=== PATIENT | male | born 1960 | race Caucasian/White ===

== ENCOUNTER 2019-11-20 08:36 | Outpatient (CLI) | payer OTHER, SELFPAY ==
[2019-11-20 08:54] LABS: Basophils Percent Auto 0.6 % (0.2-1.2); Eosinophils Absolute Auto 0.4 K/mm3 (0-0.3); Eosinophils Percent Auto 6.3 % (0-4.4); Hemoglobin 16.5 g/dL (14.0-18.0); Immature Granulocyte Absolute 0.02 K/mm3 (0.00-0.031); Immature Granulocyte Percent A 0.3 % (0-0.5); Lymphocytes Absolute Auto 2.49 K/mm3 (0.9-3.2); Lymphocytes Percent Auto 35.4 % (18.3-44.2); Mean Corpuscular HGB Conc 34.4 g/dl (32-36); Mean Corpuscular Hemoglobin 31.5 pg (26-34); Mean Corpuscular Volume 91.6 fl (80-100); Mean Platelet Volume 9.5 fl (7.4-10.4); Monocytes Absolute Auto 0.7 K/mm3 (0.1-0.6); Monocytes Percent Auto 9.8 % (2.6-8.5); Neutrophils Absolute Auto 3.4 K/mm3 (1.3-6.7); Neutrophils Percent Auto 47.6 % (45.5-73.1); Platelet Count Result 297 k/mm3 (150-375); Red Blood Count 5.24 M/mm3 (4.6-6.20); Red Cell Distribution Width 12.2 % (11.5-14.5)
[2019-11-20 10:00] LABS: Iron 141 ug/dL (49-181)
[2019-11-20 10:06] LABS: Alanine Aminotransferase 20 U/L (4-50); Albumin Level 4.5 g/dL (3.5-5.1); Alkaline Phosphatase 57 U/L (38-126); Anion Gap 13.5 mmol/L (7-16); Aspartate Amino Transferase 21 U/L (17-59); Bilirubin,Total 0.5 mg/dL (0.2-1.3); Blood Urea Nitrogen 23 mg/dL (9-20); Calcium 9.6 mg/dL (8.4-10.2); Carbon Dioxide 25 mmol/L (22-30); Chloride 102 mmol/L (98-107); Estimated Glomerular Filt Rate > 60; Glucose 109 mg/dL (75-110); Potassium 4.5 mmol/L (3.4-5.0); Sodium 136 mmol/L (137-145)
[2019-11-20 10:09] LABS: Percent Iron Saturation 40 % (20-50)
== END 2019-11-20 08:37 | disposition home or self-care (01) ==
LOC: ANHLAB 08:40
PROVIDERS: PCP Internal Medicine; Visit Provider Internal Medicine Hematology & Oncology
DX: E83.119 Hemochromatosis, unspecified (principal)
CPT/HCPCS: 36415; 80053; 82728; 83540; 83550; 85025

== ENCOUNTER 2020-01-19 09:57 | Emergency (ER) | payer OTHER, SELFPAY ==
--- NOTE | ~2020-01-19 | XR_ITS ---
EXAMINATION: XR abdomen/kub 1V DATE: 01/19/2020 11:29 INDICATION: Left kidney stone. Left flank pain. TECHNIQUE: A supine view of the abdomen was obtained. COMPARISON: CT abdomen and pelvis 01/19/2020 FINDINGS: There are no dilated loops of bowel. There is a phlebolith in left pelvis. There is a 3 mm stone in distal left ureter. IMPRESSION: 1. 3 mm stone in distal left ureter. Reviewed, dictated and finalized at location A.
--- NOTE | ~2020-01-19 | CT_ITS ---
EXAMINATION: CT abdomen pelvis wo con DATE: 01/19/2020 10:58 INDICATION: Left flank pain. Hematuria. TECHNIQUE: Computed tomography (CT) of the abdomen and pelvis was performed without intravenous contr ast. Automated exposure control and iterative reconstruction technique were employed. The dose-length product was 235.77 mGy-cm. COMPARISON: None. FINDINGS: The visualized portions of the lung bases are clear without pneumonia or pleural effusion. The heart size is normal. No pericardial effusion. The liver, gallbladder, spleen, pancreas, adrenal glands, and right kidney are normal. There is mild left hydronephrosis and hydroureter. There is a 3 mm stone in distal left ureter. The prostate is mildly enlarged. There are bilateral inguinal hernias containing fat. There are no dilated loops of bowel. The appendix is normal. There are no pathologic ally enlarged lymph nodes. There is no free intraperitoneal fluid. There is severe lumbar spondylosis . IMPRESSION: 1. 3 mm stone in distal left ureter with mild left hydronephrosis and hydroureter. Reviewed, dictated and finalized at location A. IMPRESSION: 1. 3 mm stone in distal left ureter with mild left hydronephrosis and hydrouret er.
--- NOTE | 2020-01-19 10:03 | ED.GENADULT ---
HPI - General Adult General Chief complaint: Urogenital-Male Stated complaint: hematuria Time Seen by Provider: 01/19/20 10:00 Source: RN notes reviewed History of Present Illness HPI narrative: Patient presents emergency department from home for hematuria. Patient states that last night when he went to the restroom he was peeing red blood in his urine. He states that this morning it was darker more tea colored in nature. He denies any associated symptoms denies any fevers or chills abdominal pain nausea vomiting dysuria or any other symptoms. Patient states he does take a daily aspirin Related Data Home Medications Medication Instructions Recorded Confirmed aspirin [Aspirin Low Dose] 81 mg PO DAILY 01/19/20 simvastatin 20 mg PO DAILY 01/19/20 varenicline [Chantix Continuing mg 01/19/20 Month Box] Allergies Allergy/AdvReac Type Severity Reaction Status Date / Time dextromethorphan Allergy Unknown Verified 09/10/17 14:30 doxylamine Allergy Unknown Verified 09/10/17 14:30 pseudoephedrine Allergy Unknown Verified 09/10/17 14:30 Review of Systems Review of Systems: Narrative: Gen.: Denies fevers or chills ENT: Denies congestion Respiratory: Denies shortness of breath or cough CV: Denies chest pain or palpitations GI: Denies abdominal pain nausea, emesis or diarrhea see HPI Musculoskeletal: Denies back pain or muscle pain Neuro: Denies numbness, tingling, weakness or focal weakness Skin: Denies rash Except as documented, all other systems reviewed and negative PMFSH Past Medical History Medical History (Updated 01/19/20 @ 11:54 by Gautam Kuo DO) Atrial fibrillation Exam Narrative: Exam Narrative: APPEARANCE: No acute distress, nontoxic, resting in bed EYES: EOMI HEENT: Normocephalic, atraumatic, OMM RESPIRATORY: No respiratory distress Clear to auscultation bilaterally with no rhonchi wheezing or rales. CARDIOVASCULAR: Regular rate and rhythm without murmurs rubs or gallops. ABDOMINAL: Soft, nontender, nondistended, no rebound or guarding MUSCULOSKELETAl: Moves all extremities. No clubbing, cyanosis or edema. NEURO: Awake and alert. Following commands, speech normal, no focal deficits SKIN:: Warm, dry. No rashes lesions or abrasions PSYCHIATRIC: Normal affect/mood, Course Course Emergency Course: Patient has developed some mild left flank pain Discussed with patient results of workup and diagnosis. Discussed need for follow-up with primary care, proper use of medication, and reasons to return to the emergency department. Patient understands and agrees to current treatment plan Vital Signs Vital signs: Vital Signs Temperature 97.6 F 01/19/20 10:17 Pulse Rate 53 L 01/19/20 10:17 Respiratory Rate 14 01/19/20 10:17 Blood Pressure 146/87 H 01/19/20 10:17 Pulse Oximetry 99 01/19/20 10:17 Temperature 97.6 F 01/19/20 10:17 Pulse Rate 53 L 01/19/20 10:17 Respiratory Rate 14 01/19/20 10:17 Blood Pressure 146/87 H 01/19/20 10:17 Pulse Oximetry 99 01/19/20 10:17 Medical Decision Making Vital Signs Vital Signs: Vital Signs Temperature 97.6 F 01/19/20 10:17 Pulse Rate 53 L 01/19/20 10:17 Respiratory Rate 14 01/19/20 10:17 Blood Pressure 146/87 H 01/19/20 10:17 Pulse Oximetry 99 01/19/20 10:17 Temperature 97.6 F 01/19/20 10:17 Pulse Rate 53 L 01/19/20 10:17 Respiratory Rate 14 01/19/20 10:17 Blood Pressure 146/87 H 01/19/20 10:17 Pulse Oximetry 99 01/19/20 10:17 Lab Data Result diagrams: 01/19/20 10:11 01/19/20 10:11 Labs: Lab Results 01/19/20 01/19/20 01/19/20 Range/Units 10:11 10:11 10:11 WBC 8.4 (4.5-10.0) K/mm3 RBC 5.35 (4.6-6.20) M/mm3 Hgb 17.3 (14.0-18.0) g/dL Hct 49.7 (42.0-52.0) % MCV 92.9 (80-100) fl MCH 32.3 (26-34) pg MCHC 34.8 (32-36) g/dl RDW 12.3 (11.5-14.5) % Plt Count 303 (150-375) k/mm3 MPV 9.4 (7.4-10.4) fl Imm
[2020-01-19 10:17] VITALS: BP 146/87; PULSE 53; RESP 14; TEMP 36.4; O2SAT 99
[2020-01-19] MEDS: SODIUM CHLORIDE 0.9% IV 1,000 ML 999 ML IV CONT (10:17)
[2020-01-19 10:19] LABS: Basophils Percent Auto 0.5 % (0.2-1.2); Eosinophils Absolute Auto 0.3 K/mm3 (0-0.3); Eosinophils Percent Auto 3.9 % (0-4.4); Hematocrit 49.7 % (42.0-52.0); Hemoglobin 17.3 g/dL (14.0-18.0); Immature Granulocyte Absolute 0.01 K/mm3 (0.00-0.031); Immature Granulocyte Percent A 0.1 % (0-0.5); Lymphocytes Absolute Auto 2.95 K/mm3 (0.9-3.2); Mean Corpuscular HGB Conc 34.8 g/dl (32-36); Mean Corpuscular Hemoglobin 32.3 pg (26-34); Mean Corpuscular Volume 92.9 fl (80-100); Mean Platelet Volume 9.4 fl (7.4-10.4); Monocytes Absolute Auto 0.7 K/mm3 (0.1-0.6); Monocytes Percent Auto 8.4 % (2.6-8.5); Neutrophils Absolute Auto 4.4 K/mm3 (1.3-6.7); Neutrophils Percent Auto 52.1 % (45.5-73.1); Platelet Count Result 303 k/mm3 (150-375); Red Blood Count 5.35 M/mm3 (4.6-6.20); Red Cell Distribution Width 12.3 % (11.5-14.5); White Blood Count 8.4 K/mm3 (4.5-10.0)
[2020-01-19 10:28] LABS: Prothrombin Time 12.8 Seconds (11.1-14.7)
[2020-01-19 10:29] LABS: Partial Thromboplastin Time 30.6 SECONDS (22.3-36.8)
[2020-01-19 10:33] LABS: Alanine Aminotransferase 23 U/L (4-50); Albumin Level 4.8 g/dL (3.5-5.1); Alkaline Phosphatase 57 U/L (38-126); Anion Gap 10 mmol/L (8-16); Aspartate Amino Transferase 30 U/L (17-59); Bilirubin,Total 0.4 mg/dL (0.2-1.3); Blood Urea Nitrogen 17 mg/dL (9-20); Calcium 9.8 mg/dL (8.4-10.2); Carbon Dioxide 30 mmol/L (22-30); Chloride 102 mmol/L (98-107); Estimated CRCL calculation 65 ml/min; Estimated Glomerular Filt Rate > 60; Glucose 114 mg/dL (75-110); Potassium 4.1 mmol/L (3.4-5.0); Sodium 142 mmol/L (137-145)
[2020-01-19 11:07] LABS: Add Urine Microscopic? YES; Appearance Urine Cloudy (Clear); Bilirubin Urine Negative (Negative); Blood Urine 3+ (Negative); Color Urine Red (Yellow); Glucose Urine UA Negative (Negative); Ketones Urine Negative (Negative); Leukocyte Esterase Ur Negative LEU/UL (Negative); Nitrate Urine Negative (Negative); Protein Urine 2+ mg/dL (Negative); RBC Urine >75 /hpf (0-2); Urobilinogen Urine Negative mg/dL (<2.0)
[2020-01-19] MEDS: KETOROLAC 30 MG/ML VIAL (*BKC) IV PUSH (11:19)
[2020-01-19] MEDS: TAMSULOSIN HCL 0.4 MG CAPSULE PO (11:20)
[2020-01-19 12:10] VITALS: BP 157/91; PULSE 54; RESP 12; O2SAT 99
== END 2020-01-19 12:10 | disposition home or self-care (01) ==
PROVIDERS: Emergency Provider Emergency Medicine; PCP Internal Medicine
DX: N13.2 Hydronephrosis with renal and ureteral calculous obstruction (principal); I48.91 Unspecified atrial fibrillation; Z79.82 Long term (current) use of aspirin
CPT/HCPCS: 36415; 74018; 74176; 80053; 81001; 85025; 85610; 85730; 87086; 96361; 96374; 99284; A9270; J1885; J7030

== ENCOUNTER 2020-02-23 10:33 | Outpatient (CLI) | payer OTHER, SELFPAY ==
--- NOTE | ~2020-02-23 | XR_ITS ---
EXAMINATION: XR abdomen/kub 1V INDICATION: History of nephrolithiasis TECHNIQUE: Supine views of the abdomen were obtained on 2 radiographs. COMPARISON: 01/19/2020 FINDINGS: A 3 mm calcification in the left pelvis could reflect a stone at the left ureterovesicular junction. A moderate volume of colonic stool is present. The bowel gas pattern is normal. There are n o dilated loops of bowel. Mild osteoarthritis is noted in the hips. IMPRESSION: 1. Possible stone at the left ureterovesicular junction. Reviewed, dictated and finalized at location A. RETE PUDDLER
--- NOTE | ~2020-02-23 | XR_ITS ---
EXAMINATION: XR shoulder LT min 2V INDICATION: Left shoulder pain TECHNIQUE: Four views of the left shoulder are submitted. COMPARISON: None FINDINGS: Normal alignment. No fracture. There is mild glenohumeral and acromioclavicular joint osteo arthritis. Soft tissues are unremarkable. IMPRESSION: 1. No acute osseous abnormality. Reviewed, dictated and finalized at location A. NING TEAM LEADER
--- NOTE | ~2020-02-23 | XR_ITS ---
EXAMINATION: XR chest 2V DATE: 02/23/2020 10:56 INDICATION: Tobacco use TECHNIQUE: PA and lateral views of the chest are obtained. COMPARISON: 06/28/2018 FINDINGS: The lungs are free of acute opacities. There is no pleural effusion or pneumothorax. The ca rdiomediastinal silhouette is normal. There is moderate thoracic spondylosis. IMPRESSION: 1. No acute cardiopulmonary abnormality. Reviewed, dictated and finalized at location A. CTOR OF BLOOD
== END 2020-02-23 10:34 | disposition home or self-care (01) ==
PROVIDERS: PCP Emergency Medicine; Visit Provider Emergency Medicine
DX: M25.512 Pain in left shoulder (principal); Z87.442 Personal history of urinary calculi
CPT/HCPCS: 71046; 73030; 74018

== ENCOUNTER 2020-03-01 09:21 | Outpatient (CLI) | payer OTHER, SELFPAY ==
--- NOTE | ~2020-03-01 | CT_ITS ---
EXAMINATION: CT lung screening DATE: 03/01/2020 10:02 INDICATION: TOBACCO DEPENDENCE TECHNIQUE: Computed tomography (CT) of the chest was performed without intravenous contrast. Addition al 3D reconstructions utilizing coronal maximum intensity projection (MIP) were performed. Automated exposure control and iterative reconstruction technique were employed. The dose-length product was 14 1.27 mGy-cm. COMPARISON: None FINDINGS: There are few scattered tiny nodules in the bilateral lungs, the largest measuring 4 mm in the anteri or right upper lobe and 3 mm at the apical left upper lobe. No pulmonary edema, pleural effusion or p neumothorax. Heart size is normal. No pericardial effusion. Thoracic aorta is normal in caliber. No p athologically enlarged thoracic lymphadenopathy. Visualized upper abdomen is unremarkable. Mild upper thoracic dextrocurvature with mild to moderate spondylosis. Chronic appearing mild anterior wedging of a couple mid thoracic vertebral bodies. IMPRESSION: 1. . Lung-RADS category 2: Benign appearance or behavior. Continue annual screening with noncontrast low-dose chest CT in 12 months. Reviewed, dictated and finalized at location H. INSULATION BOARD SAW OPERATOR IMPRESSION: 1. . Lung-RADS category 2: Benign appearance or behavior. Continue annual scree celina with noncontrast low-dose chest CT in 12 months.
== END 2020-03-01 09:22 | disposition home or self-care (01) ==
LOC: ANHIMG 09:22
PROVIDERS: PCP Emergency Medicine; Visit Provider Emergency Medicine
DX: Z12.2 Encounter for screening for malignant neoplasm of respiratory organs (principal); Z87.891 Personal history of nicotine dependence
CPT/HCPCS: G0297

== ENCOUNTER 2020-03-20 15:14 | Emergency (ER) | payer OTHER, SELFPAY ==
--- NOTE | ~2020-03-20 | XR_ITS ---
EXAMINATION: XR abdomen/kub 1V DATE: 03/20/2020 17:34 INDICATION: Kidney stone TECHNIQUE: A supine view of the abdomen on 2 radiographs was obtained. COMPARISON: CT dated 03/20/2020 FINDINGS: The 4 mm left ureterovesicular junction stone is clearly visualized on the plain radiographs. No othe r evident nephrolithiasis. Moderate amount of gas and stool scattered throughout the colon. No dilate d loops of gas-filled bowel to suggest obstruction. Lung bases are clear. Heart size is normal. Mild lumbar levocurvature with moderate to severe lower lumbar spondylosis. IMPRESSION: 1. 4 mm stone at the left ureterovesicular junction. Reviewed, dictated and finalized at location A. ESTATE LISTING CONSULTANT
--- NOTE | ~2020-03-20 | CT_ITS ---
EXAMINATION: CT abdomen pelvis wo con DATE: 03/20/2020 16:49 INDICATION: Left lower quadrant abdominal pain. TECHNIQUE: Computed tomography (CT) of the abdomen and pelvis was performed without intravenous contr ast. Automated exposure control and iterative reconstruction technique were employed. The dose-length product was 568.73 mGy-cm. COMPARISON: CT abdomen and pelvis 01/19/2020 FINDINGS: The visualized portions of the lung bases demonstrate minimal atelectasis. No pleural effus ion. The heart size is normal. No pericardial effusion. The liver, spleen, gallbladder, pancreas, adr enal glands, and left kidney are normal. There is a 12 mm cyst in right kidney. There is a 4 mm stone at left ureterovesicular junction with mild left hydroureter. There are bilateral inguinal hernias c ontaining fat. The prostate mildly enlarged. There are no dilated loops of bowel. The appendix is nor mal. There are no pathologically enlarged lymph nodes. There is no free intraperitoneal fluid. There is severe lumbar spondylosis. IMPRESSION: 1. 4 mm stone at left ureterovesicular junction with mild left hydroureter. Reviewed, dictated and finalized at location A. WARE TRAINER
[2020-03-20 15:20] VITALS: BP 147/100; PULSE 60; RESP 20; TEMP 36.8; O2SAT 96
[2020-03-20 15:45] LABS: Basophils Absolute Auto 0.1 K/mm3 (0.0-0.1); Basophils Percent Auto 0.5 % (0.2-1.2); Eosinophils Absolute Auto 0.5 K/mm3 (0-0.3); Eosinophils Percent Auto 5.2 % (0-4.4); Hematocrit 44.7 % (42.0-52.0); Hemoglobin 15.9 g/dL (14.0-18.0); Immature Granulocyte Absolute 0.02 K/mm3 (0.00-0.031); Immature Granulocyte Percent A 0.2 % (0-0.5); Lymphocytes Absolute Auto 3.42 K/mm3 (0.9-3.2); Lymphocytes Percent Auto 36.9 % (18.3-44.2); Mean Corpuscular HGB Conc 35.6 g/dl (32-36); Mean Corpuscular Hemoglobin 32.6 pg (26-34); Mean Corpuscular Volume 91.8 fl (80-100); Mean Platelet Volume 9.1 fl (7.4-10.4); Monocytes Absolute Auto 0.8 K/mm3 (0.1-0.6); Monocytes Percent Auto 8.3 % (2.6-8.5); Neutrophils Absolute Auto 4.5 K/mm3 (1.3-6.7); Neutrophils Percent Auto 48.9 % (45.5-73.1); Platelet Count Result 276 k/mm3 (150-375); Red Blood Count 4.87 M/mm3 (4.6-6.20); Red Cell Distribution Width 12.6 % (11.5-14.5); White Blood Count 9.3 K/mm3 (4.5-10.0)
[2020-03-20 15:57] LABS: Alanine Aminotransferase 28 U/L (4-50); Albumin Level 4.5 g/dL (3.5-5.1); Alkaline Phosphatase 50 U/L (38-126); Anion Gap 7 mmol/L (8-16); Aspartate Amino Transferase 30 U/L (17-59); Bilirubin,Total 0.4 mg/dL (0.2-1.3); Blood Urea Nitrogen 19 mg/dL (9-20); Calcium 9.3 mg/dL (8.4-10.2); Carbon Dioxide 27 mmol/L (22-30); Chloride 104 mmol/L (98-107); Estimated CRCL calculation 80 ml/min; Estimated Glomerular Filt Rate > 60; Glucose 96 mg/dL (75-110); Potassium 4.3 mmol/L (3.4-5.0); Sodium 138 mmol/L (137-145)
[2020-03-20 16:13] LABS: Add Urine Microscopic? YES; Appearance Urine Clear (Clear); Bilirubin Urine Negative (Negative); Blood Urine 1+ (Negative); Color Urine Yellow (Yellow); Glucose Urine UA Negative (Negative); Ketones Urine Negative (Negative); Leukocyte Esterase Ur Negative LEU/UL (Negative); Mucus Urine Rare /lpf; Nitrate Urine Negative (Negative); Protein Urine 1+ mg/dL (Negative); Specific Grav Ur 1.026 (1.001-1.035); Squamous Epithelial Cell Urine Rare /hpf (Few)
--- NOTE | 2020-03-20 17:34 | ED.GENADULT ---
HPI - General Adult General Chief complaint: Urogenital-Male Stated complaint: Difficulty Urinating Time Seen by Provider: 03/20/20 15:20 Source: RN notes reviewed History of Present Illness HPI narrative: Patient presents emergency department from home for urinary frequency. Patient states he has been having feeling of frequent urination over the past several days as well as pain in his left lower abdomen that does not radiate. States that symptoms are similar to previous kidney stones and states he was here the beginning of January for a kidney stone at that time. Patient states has been having intermittent symptoms over the past several months of pain on the left side he denies any fevers or chills nausea vomiting or any other symptoms states he is not followed with urology Related Data Home Medications Medication Instructions Recorded Confirmed aspirin [Aspirin Low Dose] 81 mg PO DAILY 01/19/20 simvastatin 20 mg PO DAILY 01/19/20 varenicline [Chantix Continuing mg 01/19/20 Month Box] Allergies Allergy/AdvReac Type Severity Reaction Status Date / Time dextromethorphan Allergy Unknown Verified 09/10/17 14:30 doxylamine Allergy Unknown Verified 09/10/17 14:30 pseudoephedrine Allergy Unknown Verified 09/10/17 14:30 Review of Systems Review of Systems: Narrative: Gen.: Denies fevers or chills Eyes: Denies eye pain or visual change ENT: Denies congestion Respiratory: Denies shortness of breath or cough CV: Denies chest pain or palpitations GI: Reports left lower abdominal pain denies nausea vomiting or diarrhea see HPI Musculoskeletal: Denies back pain or muscle pain Neuro: Denies numbness, tingling, weakness or focal weakness Skin: Denies rash Except as documented, all other systems reviewed and negative [facility] [place] Past Medical History Medical History Atrial fibrillation Social History Social History (Updated 03/20/20 @ 17:35 by Gautam Kuo DO) Smoking status: Never smoker Exam Narrative: Exam Narrative: APPEARANCE: No acute distress, nontoxic, resting in bed EYES: EOMI HEENT: Normocephalic, atraumatic, OMM RESPIRATORY: No respiratory distress Clear to auscultation bilaterally with no rhonchi wheezing or rales. CARDIOVASCULAR: Regular rate and rhythm without murmurs rubs or gallops. ABDOMINAL: Soft, nondistended, tender palpation left lower quadrant no tenderness left lower quadrant right upper quadrant right lower quadrant no rebound or guarding MUSCULOSKELETAl: Moves all extremities. No clubbing, cyanosis or edema. NEURO: Awake and alert. Following commands, speech normal, no focal deficits SKIN:: Warm, dry. No rashes lesions or abrasions PSYCHIATRIC: Normal affect/mood, Course Course Emergency Course: Reviewed old records. Patient with a CT scan on 01/19/2020 showing a left distal UVJ stone approximately 3 to 4 mm and a KUB again at the beginning of them are showing the same stone Called discussed with Dr. Bhardwaj presentation work-up. At this time likely 4 mm distal left ureteral stone is not passing will follow-up as an outpatient agrees with pain control and Flomax at this time Discussed with patient results of workup and diagnosis. Discussed need for follow-up with primary care, proper use of medication, and reasons to return to the emergency department. Patient understands and agrees to current treatment plan Vital Signs Vital signs: Vital Signs Temperature 98.3 F 03/20/20 15:20 Pulse Rate 60 03/20/20 15:20 Respiratory Rate 20 03/20/20 15:20 Blood Pressure 147/100 H 03/20/20 15:20 Pulse Oximetry 96 03/20/20 15:20 Temperature 98.3 F 03/20/20 15:20 Pulse Rate 60 03/20/20 15:20 Respiratory Rate 20 03/20/20 15:20 Blood Pressure 147/100 H 03/20/20 15:20 Pulse Oximetry 96 03/20/20 15:20 Medical Decision Making Vital Signs Vital Signs: Vital Signs Temperature 98.3 F 03/20/20 15:20 Pulse R
[2020-03-20 18:05] VITALS: BP 143/84; PULSE 65; RESP 16; O2SAT 96
[2020-03-20] MEDS: TAMSULOSIN HCL 0.4 MG CAPSULE PO (18:06)
== END 2020-03-20 18:05 | disposition home or self-care (01) ==
PROVIDERS: Emergency Provider Emergency Medicine; PCP Emergency Medicine
DX: N20.0 Calculus of kidney (principal); I48.91 Unspecified atrial fibrillation
CPT/HCPCS: 36415; 74018; 74176; 80053; 81001; 85025; 99284; A9270

== ENCOUNTER 2020-07-05 07:40 | Outpatient (CLI) | payer OTHER, SELFPAY ==
--- NOTE | ~2020-07-05 | DEXA_ITS ---
Bone Density Report Name: Jayson Zamudio Age: 59 Sex: Male Ethnicity: White Date of : 1960 Indication: osteoporosis; asthma or emphysema; rheumatoid arthritis; Referring Provider: Silverio Hdez Study: Bone densitometry was performed. Exam Date: July 05, 2020 Accession number: [id number] Bone Density: Region BMD T-score Z-score Classification AP Spine (L2, L3, L4) 0.858 -2.3 -1.8 Osteopenia Femoral Neck (Left) 0.704 -1.7 -0.8 Osteopenia Total Hip (Left) 0.893 -0.9 -0.5 Normal Total Hip Bilateral Avg 0.891 -0.9 -0.6 Normal Femoral Neck (Right) 0.715 -1.6 -0.7 Osteopenia Total Hip (Right) 0.887 -1.0 -0.6 Normal World Health Organization criteria for BMD impression classify patients as: Normal (T-score at or above -1.0), Osteopenia (T-score between -1.0 and -2.5), or Osteoporosis (T-score at or below -2.5). 10-year Fracture Risk(1): Major Osteoporotic Fracture 7.8% Hip Fracture 1.6% Reported Risk Factors: [place] (), Neck BMD=0.704, BMI=27.4, smoking, rheumatoid arthritis (1) FRAX(R) Version 3.08. Fracture probability calculated for an untreated patient. Fracture probability may be lower if the patient has received treatment. Previous Exams: Region Exam Age BMD T-score BMD Change BMD Change Date g/cm2 vs Baseline vs Previous AP Spine(L2, L3, L4) 07/05/2020 59 0.858 -2.3 0.044(5.4%)# 0.044(5.4%)# 07/27/2005 44 0.814 -2.7 Total Hip(Right) 07/05/2020 59 0.887 -1.0 0.061(7.3%)# 0.061(7.3%)# 07/27/2005 44 0.827 -1.4 *Denotes significance at 95% confidence level, LSC for AP Spine = 0.022 g/cm2, LSC for Total Hip = 0.027 g/cm2 Clinical Information Provided by Patient: Smokes Has rheumatoid arthritis Has used the following medications: Vitamin D, Calcium Has the following medical conditions: Asthma or Emphysema Patient maximum height was 67 Does not regularly consume dairy products Impression: The patient has low bone mass, based on the Total Spine T-score. The patient has an estimated ten-year risk of hip fracture of 1.6% and an estimated ten-year risk of major fracture of 7.8%, based on the WHO FRAX algorithm. The patient has risk factors, including: smoking. No significant bone loss was observed. Discussion: BONE DENSITY IS LOW AT ONE OR MORE SKELETAL SITES. This patient's lowest T-score is low at one or more skeletal sites. It meets the World Health Organization's (WHO) criteria for ?low bone mass? (T-score between -1.0 and -2.5). The tasha
== END 2020-07-05 07:41 | disposition home or self-care (01) ==
LOC: ANHIMG 07:42
PROVIDERS: PCP Emergency Medicine; Visit Provider Emergency Medicine
DX: M81.0 Age-related osteoporosis without current pathological fracture (principal); M85.88 Other specified disorders of bone density and structure, other site; M85.852 Other specified disorders of bone density and structure, left thigh; M85.851 Other specified disorders of bone density and structure, right thigh
CPT/HCPCS: 77080

== ENCOUNTER 2020-09-11 07:42 | Outpatient (CLI) | payer OTHER, SELFPAY ==
--- NOTE | ~2020-09-11 | MR_ITS ---
EXAMINATION: MR shoulder LT wo con DATE: 09/11/2020 09:18 INDICATION: Left shoulder pain and weakness TECHNIQUE: Magnetic resonance imaging (MRI) of the left shoulder was performed without intravenous co ntrast. Sequences included axial PD-weighted FS FSE, coronal oblique PD-weighted FS FSE, coronal obli que T2-weighted FS FSE, sagittal PD-weighted FS FSE, and sagittal T1-weighted SE. COMPARISON: Left shoulder radiographs dated 02/23/2020 FINDINGS: Coracoacromial arch: The acromion undersurface is curved in morphology (type II). The coracoacromial ligament is normal. M ild acromioclavicular osteoarthritis. Rotator cuff: Mild to moderate supraspinatus and infraspinatus tendinopathy greatest at the conjoined portion of th e tendons where there is attenuation of the distal 1.5 cm of the tendon resulting from an intrasubsta nce tear along the junction of the superior and middle facet footplates which appears to involve appr oximately one third of the tendon thickness and extends approximately 12 mm AP. Subscapularis tendino nayeli without discrete tear. The teres minor tendon is normal. Normal rotator cuff muscle bulk and si gnal. Biceps tendon, glenoid labrum and glenohumeral cartilage: Long head of the biceps tendon is normal. Mild glenohumeral osteoarthritis with mild partial thicknes s cartilage loss with smooth chondral surface along the inferior aspect of the glenoid and inferomedi al humeral head. The anteroinferior to inferior glenoid labrum appears diminutive and cyst with likel y chronic degeneration with tiny marginal osteophytes along the underlying rim of the glenoid. Small linear tear near the chondral labral junction at the base of the 12:00 position of the superior labru m. Fluid: Physiologic amount of fluid in the glenohumeral joint and biceps tendon sheath. No loose osteochondra l bodies. Small amount of fluid in the subacromial/subdeltoid bursa consistent with mild bursitis. Bones: Normal marrow signal with no edema, fracture or abnormal marrow replacing process. Mild cystic change along the superior and middle facets of the greater tuberosity likely related to chronic rotator cuf f disease. IMPRESSION: 1. Mild to moderate supraspinatus and infraspinatus tendinopathy with small mild intrasubstance tear at the footplate of the conjoined portion of the tendons. 2. Mild subscapularis tendinopathy without discrete tear. 3. Mild glenohumeral osteoarthritis with small tear at the superior glenoid labrum and likely chronic degeneration along the anteroinferior to inferior labrum. 4. Mild acromioclavicular osteoarthritis. 5. Mild underlying subacromial/subdeltoid bursitis. Reviewed, dictated and finalized at location A. IMPRESSION: 1. Mild to moderate supraspinatus and infraspinatus tendinopathy with small mil d intrasubstance tear at the footplate of the conjoined portion of the tendons. 2. Mild subscapularis tendinopathy without discrete tear. 3. Mild glenohumeral osteoarthritis with small tear at the superior glenoid lab rum and likely chronic degeneration along the anteroinferior to inferior labrum . 4. Mild acromioclavicular osteoarthritis. 5. Mild underlying subacromial/subdeltoid bursitis.
== END 2020-09-11 07:43 | disposition home or self-care (01) ==
PROVIDERS: PCP Emergency Medicine; Visit Provider Orthopaedic Surgery
DX: M19.012 Primary osteoarthritis, left shoulder (principal); M75.102 Unspecified rotator cuff tear or rupture of left shoulder, not specified as traumatic; M75.52 Bursitis of left shoulder; S43.432A Superior glenoid labrum lesion of left shoulder, initial encounter
CPT/HCPCS: 73221

== ENCOUNTER → 2021-05-15 10:15 | Outpatient (CLI) | payer OTHER, SELFPAY ==
--- NOTE | ~2021-05-15 | XR_ITS ---
XR cervical spine 4-5V 05/15/2021 10:33 Indication: Crackling sound in the back of the neck Procedure: 4 views of the cervical spine Comparison: No prior studies for comparison. Findings: There is mild levocurvature. There is mild multilevel uncinate and facet hypertrophy, left greater than right.. There is mild disc narrowing at C5-6. Lung apices are unremarkable. No acute fra cture or traumatic malalignment. Impression: 1: Mild-moderate cervical spondylosis. Reviewed, dictated and finalized at location B. ENT MANUFACTURER Impression: 1: Mild-moderate cervical spondylosis.
== END ==
PROVIDERS: PCP Emergency Medicine; Visit Provider Emergency Medicine
DX: M47.812 Spondylosis without myelopathy or radiculopathy, cervical region (principal)
CPT/HCPCS: 72050

== ENCOUNTER 2021-05-17 09:07 | Outpatient (CLI) | payer OTHER, SELFPAY ==
--- NOTE | ~2021-05-17 | CT_ITS ---
CT lung screening DATE: 05/17/2021 09:33 INDICATION: Tobacco dependence TECHNIQUE: Computed tomography of the chest was performed without IV contrast material. Automated exp osure control and iterative reconstruction technique were employed. Exam dose: 134.44 mGy-cm total exam DLP. COMPARISON: 03/01/2020 CT lung screening FINDINGS: No pulmonary infiltrate or consolidation or pulmonary mass lesion. There is a small calcified pulmonary granuloma in the right upper lobe. No hilar or mediastinal mass lesion or lymphadenopathy. No thoracic aortic aneurysm. Normal heart size. Diffuse idiopathic skeletal hyperostosis of the thoracic spine. IMPRESSION: LUNG RADS Category 1 Recommendation: Continued annual CT lung screening Reviewed, dictated and finalized at Location A. Reviewed, dictated and finalized at location A. ESSIONAL NURSING TUTOR
== END 2021-05-17 09:08 | disposition home or self-care (01) ==
LOC: ANHIMG 09:12
PROVIDERS: PCP Emergency Medicine; Visit Provider Emergency Medicine
DX: Z12.2 Encounter for screening for malignant neoplasm of respiratory organs (principal); Z87.891 Personal history of nicotine dependence
CPT/HCPCS: 71271

== ENCOUNTER 2021-08-04 10:13 | Outpatient (CLI) | payer OTHER, SELFPAY ==
[2021-08-04 10:31] LABS: Basophils Percent Auto 0.5 % (0.2-1.2); Eosinophils Absolute Auto 0.2 K/mm3 (0-0.3); Eosinophils Percent Auto 3.9 % (0-4.4); Hematocrit 43.7 % (42.0-52.0); Hemoglobin 14.4 g/dL (14.0-18.0); Immature Granulocyte Absolute 0.01 K/mm3 (0.00-0.031); Immature Granulocyte Percent A 0.2 % (0-0.5); Lymphocytes Absolute Auto 2.49 K/mm3 (0.9-3.2); Lymphocytes Percent Auto 40.6 % (18.3-44.2); Mean Corpuscular Hemoglobin 31.9 pg (26-34); Mean Corpuscular Volume 96.9 fl (80-100); Mean Platelet Volume 9.1 fl (7.4-10.4); Monocytes Absolute Auto 0.5 K/mm3 (0.1-0.6); Monocytes Percent Auto 7.3 % (2.6-8.5); Neutrophils Absolute Auto 2.9 K/mm3 (1.3-6.7); Neutrophils Percent Auto 47.5 % (45.5-73.1); Platelet Count Result 296 k/mm3 (150-375); Red Blood Count 4.51 M/mm3 (4.6-6.20); Red Cell Distribution Width 12.8 % (11.5-14.5); White Blood Count 6.1 K/mm3 (4.5-10.0)
[2021-08-04 17:46] LABS: Iron 133 ug/dL (49-181)
[2021-08-04 17:55] LABS: Alanine Aminotransferase 37 U/L (4-50); Albumin Level 4.5 g/dL (3.5-5.1); Alkaline Phosphatase 49 U/L (38-126); Anion Gap 7 mmol/L (8-16); Aspartate Amino Transferase 38 U/L (17-59); Bilirubin,Total 0.5 mg/dL (0.2-1.3); Blood Urea Nitrogen 17 mg/dL (9-20); Calcium 8.8 mg/dL (8.4-10.2); Carbon Dioxide 23 mmol/L (22-30); Chloride 105 mmol/L (98-107); Estimated Glomerular Filt Rate > 60; Glucose 143 mg/dL (65-110); Potassium 4.1 mmol/L (3.4-5.0); Sodium 135 mmol/L (137-145)
[2021-08-04 17:56] LABS: Percent Iron Saturation 37 % (20-50)
== END 2021-08-04 10:14 | disposition home or self-care (01) ==
LOC: ANHLAB 10:17
PROVIDERS: PCP Emergency Medicine; Visit Provider Internal Medicine Hematology & Oncology
DX: E83.119 Hemochromatosis, unspecified (principal)
CPT/HCPCS: 36415; 80053; 82728; 83540; 83550; 85025

== ENCOUNTER 2021-08-11 07:49 | Outpatient (CLI) | payer OTHER, SELFPAY ==
--- NOTE | 2021-08-11 09:10 | ECHO_ITS ---
Patient Info Name: Jayson Zamudio Age: 60 years : 1960 Gender: Male Ht: 66 in Wt: 175 lbs BSA: 1.94 m2 HR: 57 bpm BP: 163 / 92 mmHg Technical Quality: Good Exam Date: 08/11/2021 9:38 AM Exam Location: [facility] Pulmonary Patient Status: Outpatient Admit Date: 08/11/2021 Staff Ordering Physician: Miah Angel MD Vp Product: Khoa Umanzor, LISA, RT Attending Provider: Miah Angel MD Referring Physician: Jeanne HOLM; Exam Type: CA echo doppler color flow Study Info Indications R06.00 - Dyspnea, unspecified Complete two-dimensional, color flow and Doppler transthoracic echocardiogram is performed. Strain analysis performed. Summary 1. Complete two-dimensional, color flow and Doppler transthoracic echocardiogram is performed. 2. Left ventricular chamber dimension is normal. 3. Left ventricular systolic function is normal, estimated at 60-65%. 4. There is mildly increased left ventricular wall thickness. 5. The left ventricular diastolic function is normal. 6. E/e' 7 is not elevated. 7. Global longitudinal strain is normal at -17.4%. 8. There is trace tricuspid valve regurgitation. Left Ventricle E/e' 7 is not elevated. Global longitudinal strain is normal at -17.4%. Left ventricular chamber dimension is normal. Left ventricular systolic function is normal, estimated at 60-65%. There is mildly increased left ventricular wall thickness. The left ventricular diastolic function is normal. Right Ventricle Right ventricular systolic function is normal and with normal TAPSE 2.1 cm. Right ventricular chamber dimension is normal. Left Atria Left atrial chamber dimension is normal. Right Atria Right atrial chamber dimension is normal. Aortic Valve The aortic valve is trileaflet. There is no aortic valve stenosis. There is no aortic valve regurgitation. Pulmonic Valve There is no pulmonic regurgitation. Mitral Valve There is no mitral valve stenosis. There is no mitral valve regurgitation. Tricuspid Valve There is trace tricuspid valve regurgitation. RVSP is not calculated due to an inadequate TR jet. Pericardium/Pleural There is no pericardial effusion. Inferior Vena Cava Normal inferior vena cava with >50% collapse upon inspiration consistent with normal right atrial pressure, 5 mmHg. Aorta The aortic root size at the sinus of Valsalva is normal. Left Ventricular Outflow Tract Name Value Normal LVOT 2D LVOT Diameter 2.0 cm LVOT Doppler LVOT Peak Gradient 5 mmHg LVOT Mean Gradient 2 mmHg LVOT VTI 23 cm LVOT VTI/AV VTI Ratio 0.7 LVOT Stroke Volume 74 ml LVOT CO 4.0 l/min LVOT CI 2.1 l/min/m2 Mitral Valve Name Value Normal MV Doppler
--- NOTE | 2021-08-12 22:11 | WPDPFTINT ---
PFT Procedure Performed PFT Procedure Performed Spirometry with Pre/Post Bronchodilator Plethysmography (Lung Vol) Diffusing Cap (DLCO) Flow Vol Loop PFT Interpretation DOS: 08/11/2021 REQUESTING: Dr. Miah Angel REASON FOR TESTING: Shortness of breath PULMONARY FUNCTION TESTS Results are reliable and reproducible Spirometry: Pre-bronchodilator FEV1 is 50% predicted, 1.62 L, moderately reduced. FVC is 68% predicted, 2.79 L, mildly reduced. FEV1/FVC ratio is reduced 58% consistent with airflow obstruction. After bronchodilator administration there was an 18% increase in FEV1 which is greater than 200 mils and this is statistically significant. FVC increases by 16%. Lung volumes: Total lung capacity is 99%, 6.15 L, normal. FRC is 121% predicted, 3.83 L normal. ERV is 41%, decreased, 0.56 L. Residual volume is 162%, 3.22 L consistent with air trapping. Airway resistance is increased. Diffusion: DLCO is 68%, mildly decreased. DLCO/VA is 87%, normal. Flow volume loop: Scooping of the expiratory limb. IMPRESSION: This pulmonary function study shows a moderate obstructive ventilatory impairment with good response to bronchodilator, air trapping, increased airway resistance and a mild diffusion impairment. This pattern may reflect an overlap of COPD and asthma. Clinical correlation is recommended. Suyapa Rivas MD
--- NOTE | 2021-08-12 22:18 | WPDSIXMINUTE ---
Six Minute Walk Procedure Procedure Performed Pulmonary Stress Test (6 min walk) Six Minute Walk Six Minute Walk: DOS: 08/11/2021 REQUESTING: Dr. Miah Angel REASON FOR TESTING: Shortness of breath SIX MINUTE WALK This study was performed per ATS guidelines. The test was conducted with the patient breathing room air, initial saturation 95% and pulse 55. There is no significant drop in the saturation. Pulse increased to 93. The patient walked a total of 1000 ft/ 304.8 m. During recovery saturation was 95% and the pulse was 59. IMPRESSION: This study shows no requirement for oxygen with exertion. Distance walked is adequate for age.
== END 2021-08-11 07:50 | disposition home or self-care (01) ==
LOC: ANHPFT 07:53
PROVIDERS: PCP Emergency Medicine; Visit Provider Internal Medicine Pulmonary Disease
DX: I48.0 Paroxysmal atrial fibrillation (principal); R06.00 Dyspnea, unspecified; R94.2 Abnormal results of pulmonary function studies
CPT/HCPCS: 93306; 94060; 94618; 94726; 94729

== ENCOUNTER → 2021-09-01 09:59 | Outpatient (CLI) | payer OTHER, SELFPAY | PROVIDERS: PCP Emergency Medicine; Visit Provider Emergency Medicine | DX: R07.81 Pleurodynia (principal) | CPT/HCPCS: 71046 ==

== ENCOUNTER → 2021-09-02 08:05 | Outpatient (CLI) | payer OTHER, SELFPAY ==
--- NOTE | ~2021-09-02 | XR_ITS ---
EXAMINATION: XR abdomen/kub 1V DATE: 09/02/2021 08:35 INDICATION: Abdominal pain. Left lateral rib pain. TECHNIQUE: A supine view of the abdomen was obtained. COMPARISON: Abdomen radiographs 03/20/2020, CT abdomen and pelvis 03/20/2020 FINDINGS: There are no dilated loops of bowel. There is a moderate volume of stool in the colon. IMPRESSION: 1. Normal bowel gas pattern. Reviewed, dictated and finalized at location B.
--- NOTE | ~2021-09-02 | XR_ITS ---
[XR chest 2V, XR ribs LT 2V ] INDICATION: Smoker. Left-sided rib pain. TECHNIQUE: Frontal projection of the upper ribs, frontal projection of the lower ribs, oblique projec tion of all the ribs, frontal inspiratory and lateral chest x-ray for interpretation. FINDINGS: There are no displaced rib fractures identified. There are no soft tissue abnormality see n. The lungs are clear. Heart size is normal. No focal pneumonia, edema, effusion or pneumothorax. IMPRESSION: 1:No acute cardiopulmonary disease. No acute rib fracture. Reviewed, dictated and finalized at location A.
== END ==
PROVIDERS: PCP Emergency Medicine; Visit Provider Emergency Medicine
DX: R07.81 Pleurodynia (principal); R10.9 Unspecified abdominal pain
CPT/HCPCS: 71100; 74018

== ENCOUNTER → 2021-10-01 10:35 | Outpatient (CLI) | payer OTHER, SELFPAY ==
--- NOTE | ~2021-10-01 | XR_ITS ---
XR humerus RT DATE: 10/01/2021 11:00 INDICATION: Left upper arm pain for 2 months. No injury. TECHNIQUE: AP and lateral views COMPARISON: None FINDINGS: No fracture or dislocation, periosteal reaction or bone destruction of the humerus. Normal alignment at the acromioclavicular, glenohumeral and elbow joints. Dorsal olecranon process spur, present on 09/17/2015 right elbow radiographs. There is a fixation device at the proximal radius. IMPRESSION: No significant abnormality of the right humerus Postoperative change of the proximal radius Dorsal olecranon process spur Reviewed, dictated and finalized at location A.
== END ==
PROVIDERS: PCP Emergency Medicine; Visit Provider Emergency Medicine
DX: M89.8X2 Other specified disorders of bone, upper arm (principal)
CPT/HCPCS: 73060

== ENCOUNTER 2021-10-20 21:22 | Observation (INO) | payer OTHER, SELFPAY ==
[2021-10-20] VITALS (8 sets, daily range): BP systolic 103–156; BP diastolic 73–92; PULSE 112–161; RESP 17–22; TEMP 36.8; O2SAT 97–99
--- NOTE | ~2021-10-20 | XR_ITS ---
EXAMINATION: XR chest 1V portable DATE: 10/20/2021 21:58 INDICATION: Shortness of breath. Feels fluttering chest. TECHNIQUE: frontal view of the chest was obtained. COMPARISON: Chest radiograph dated 09/02/2021 FINDINGS: Pulmonary vascular congestion without katelin pulmonary edema. No pleural effusion or pneumothorax. The cardiomediastinal silhouette is normal. Visualized bones and soft tissues are unremarkable. IMPRESSION: 1. Pulmonary vascular congestion without katelin pulmonary edema. Reviewed, dictated and finalized at location A.
--- NOTE | 2021-10-20 21:30 | ED.ARRPALP ---
HPI - Arrhythmia/Palpitations General Chief Complaint: Arrhythmia/Palpitations Stated Complaint: AFIB WITH RVR Time Seen by Provider: 10/20/21 21:27 History of Present Illness HPI narrative: 60-year-old male with history of atrial fibrillation presented to the emergency department for evaluation of cute onset of rapid heart rate with heart palpitations. Patient states that approximately 9 PM he was lying down when he felt onset of a rapid heart rate. Patient called EMS for evaluation. Patient states he has had 2 episodes of atrial fibrillation. Last one was about a year ago and states it resolved spontaneously. Patient states he had an episode in 2018 that did require hospital admission. Patient denies any prior cardioversion. Related Data Home Medications Medication Instructions Recorded Confirmed aspirin 81 mg tablet,delayed 81 mg PO DAILY 01/19/20 08/22/21 release (Roxanne Low Dose Aspirin) calcium carbonate 600 mg calcium 600 mg PO DAILY 05/17/20 08/22/21 (1,500 mg) tablet (Calcium) garlic 1,000 mg capsule 1,000 mg PO DAILY 05/17/20 08/22/21 melatonin 3 mg capsule mg PO 05/17/20 08/22/21 cholecalciferol (vitamin D3) 25 5,000 unit PO DAILY 01/03/21 08/22/21 mcg (1,000 unit) capsule magnesium 250 mg tablet 250 mg PO DAILY 07/03/21 08/22/21 cyanocobalamin (vitamin B-12) 500 1,000 mcg PO DAILY 08/22/21 08/22/21 mcg tablet (Vitamin B-12) Allergies Allergy/AdvReac Type Severity Reaction Status Date / Time dextromethorphan Allergy Unknown unknown Verified 10/20/21 21:50 doxylamine Allergy Unknown unknown Verified 10/20/21 21:50 pseudoephedrine Allergy Unknown Unknown Verified 10/20/21 21:50 Review of Systems Review of Systems: CONSTITUTIONAL: Denies fever, chills, or sweats. EYES: Denies visual changes, redness, or discharge. ENT: Denies rhinorrhea, congestion, sore throat, or otalgia. CARDIOVASCULAR: Heart palpitations, denies any chest pain. See HPI RESPIRATORY: Denies cough or dyspnea. GASTROINTESTINAL: Denies abdominal pain, nausea, vomiting, or diarrhea. GENITOURINARY: Denies dysuria or hematuria. SKIN: Denies rash or itching. MUSCULOSKELETAL: Denies back pain, joint pain, or myalgia. NEUROLOGIC: Denies headache, numbness, or weakness. PSYCHIATRIC: Denies anxiety or depression. [facility] Past Medical History Medical History Atrial fibrillation Hemochromatosis Hyperlipidemia Prediabetes Right arm pain Surgical History Surgical History History of colonoscopy History of shoulder surgery Family History Family History Father Acute alcohol abuse Mother Cancer Hypertension Heart and renal disease, hypertensive Social History Social History (Updated 08/22/21 @ 09:45 by Lavonne Egan MA) Social History: Patient stated he is only smoking 2 cigarettes per day, 08/13/2021 Smoking packs per day: 1 Smoking cigarettes per day: 20.0 Years smoked: 41 Smoking pack-years: 41.00 Smoking status: Current every day smoker Second hand tobacco smoke exposure: Yes Alcohol intake: former Exam Narrative: APPEARANCE: Well appearing, no pain, no distress, well-nourished. HEAD: normocephalic, atraumatic. EYES: PERRLA/EOMI, conjunctivae clear. NOSE: Normal no drainage EARS:TMS clear with good light reflex. THROAT: Pharynx clear, no exudate. NECK: Supple. No adenopathy, no masses. RESPIRATORY: Airway patent, respirations nonlabored. Clear to auscultation bilaterally, no rales, rhonchi, wheezing. CARDIOVASCULAR: Tachycardia with a rate into the 180s ABDOMINAL: Soft, nontender, nondistended, normal bowel sounds MUSCULOSKELETAL: Moves all extremities. Strength/ROM intact, No edema, No calf tenderness. NEURO: Alert. Cranial nerves II through XII intact. Grossly intact SKIN: Warm, dry. Normal Color Course Course Emergency Course:
--- NOTE | 2021-10-20 21:34 | ECG_ITS ---
Rate 150 IL 0 QRSd 96 QT 283 QTc 448 --[place]-- P QRS 16 T 51 ATRIAL FIBRILLATION WITH RAPID VENTRICULAR RESPONSE ST-T WAVE ABNORMALITY IN ANTEROLAT/HIGH LAT LEADS- CONSIDER ISCHEMIA ABNORMAL ECG Electronically Signed On 10-21-2021 8:00:45 CDT by Jarod BRAVO
[2021-10-20] MEDS: SODIUM CHLORIDE 0.9% IV 1,000 ML 999 ML IV CONT (21:35)
[2021-10-20] MEDS: dilTIAZem HCl INJ 25 MG/5 ML VIAL 10 MG IV PUSH (21:36)
[2021-10-20] MEDS: dilTIAZem 100 MG/100 ML 100 MG/100 ML BAG IV CONT (21:37)
[2021-10-20 22:06] LABS: Appearance Urine Clear (Clear); Basophils Percent Auto 0.5 % (0.2-1.2); Bilirubin Urine Negative (Negative); Blood Urine Trace-lysed (Negative); Color Urine Yellow (Yellow); Eosinophils Absolute Auto 0.3 K/mm3 (0-0.3); Eosinophils Percent Auto 4.3 % (0-4.4); Glucose Urine UA Negative (Negative); Hematocrit 43.9 % (42.0-52.0); Hemoglobin 14.8 g/dL (14.0-18.0); Immature Granulocyte Absolute 0.02 K/mm3 (0.00-0.031); Immature Granulocyte Percent A 0.3 % (0-0.5); Ketones Urine Negative (Negative); Leukocyte Esterase Ur Negative LEU/UL (Negative); Lymphocytes Absolute Auto 3.04 K/mm3 (0.9-3.2); Lymphocytes Percent Auto 40.5 % (18.3-44.2); Mean Corpuscular HGB Conc 33.7 g/dl (32-36); Mean Corpuscular Hemoglobin 31.7 pg (26-34); Mean Platelet Volume 9.6 fl (7.4-10.4); Monocytes Absolute Auto 0.8 K/mm3 (0.1-0.6); Monocytes Percent Auto 11.1 % (2.6-8.5); Neutrophils Absolute Auto 3.3 K/mm3 (1.3-6.7); Neutrophils Percent Auto 43.3 % (45.5-73.1); Nitrate Urine Negative (Negative); Platelet Count Result 277 k/mm3 (150-375); Protein Urine Negative (Negative); Red Blood Count 4.67 M/mm3 (4.6-6.20); Red Cell Distribution Width 12.6 % (11.5-14.5); Urobilinogen Urine 0.2 mg/dL (<2.0); White Blood Count 7.5 K/mm3 (4.5-10.0)
[2021-10-20 22:12] LABS: RBC Urine 0-2 /hpf (0-2); WBC Urine 0-3 /hpf
[2021-10-20 22:17] LABS: Partial Thromboplastin Time 28.6 SECONDS (22.3-36.8)
[2021-10-20 22:22] LABS: Add Urine Microscopic? YES; Amphetamine Screen Urine Negative (Negative); Barbiturate Screen Urine Negative (Negative); Benzodiazepines Screen Urine Negative (Negative); Cannabinoid Screen Urine Negative (Negative); Cocaine Screen Urine Negative (Negative); Methadone Screen Urine Negative (Negative); Opiate Screen Urine Negative (Negative); Phencyclidine Screen Urine Negative (Negative)
[2021-10-20 22:34] LABS: Alanine Aminotransferase 35 U/L (6-50); Albumin Level 4.4 g/dL (3.5-5.1); Alkaline Phosphatase 50 U/L (38-126); Anion Gap 8 mmol/L (8-16); Aspartate Amino Transferase 31 U/L (17-59); Bilirubin,Total 0.3 mg/dL (0.2-1.3); Blood Urea Nitrogen 22 mg/dL (9-20); Carbon Dioxide 21 mmol/L (22-30); Chloride 111 mmol/L (98-107); Estimated CRCL calculation 73 ml/min; Estimated Glomerular Filt Rate > 60; Glucose 116 mg/dL (65-110); NT Pro B Type Natriuretic Pept 32 pg/mL (5-100); Potassium 3.6 mmol/L (3.4-5.0); Sodium 140 mmol/L (137-145)
[2021-10-20 22:36] LABS: Troponin I < 0.012 ng/mL (0.000-0.034)
[2021-10-20 22:39] LABS: SARS-CoV-2 RNA PCR Negative
--- NOTE | 2021-10-20 23:05 | PC.NURSE ---
Assumed care of pt at this time. Pt alert and upright on stretcher, updated on POC.
--- NOTE | 2021-10-20 23:56 | PM.IMHP ---
H&P: HPI History of Present Illness Date/Time: 10/20/21 23:56 Chief Complaint: palpitations Narrative: this is a 60-year-old male with past medical history significant for COPD / emphysema, former smoker 40 pack year smoking history dyslipidemia. Patient presents to the emergency room due to palpitations fluttery feeling in his chest pounding of the chest, denies any nausea, vomiting, dizziness, lightheadedness, near-syncope, syncope, no cough, no sputum production, no leg swelling, no pedal swelling, no ankle swelling, no calves pain, no fevers, no rigors, no chills, no chest pain. upon arrival to emergency room patient was found to have atrial fibrillation with rapid ventricular response and placed on Cardizem drip. Preliminary workup was significant for elevated troponin. patient has been in his usual state of health up until this moment. Decision has been made to admit patient for further evaluation management and treatment. Review of Systems Review of Systems: palpitations Constitutional: Constitutional: Denies chills, Denies excessive sweating, Denies fatigue, Denies fever(s), Denies malaise, Denies night sweats, Denies poor appetite and Denies weakness Eyes: Eyes: Denies change in vision ENT: Denies dysphagia, Denies vertigo, Denies dizziness and Denies odynophagia Cardiovascular: Cardiovascular: Denies chest pain, Denies diaphoresis, Denies syncope, Denies pedal edema, Reports irregular heart rhythm, Denies claudication, Denies lightheadedness, Denies radiating jaw, neck or arm pain, Reports palpitations, Denies dyspnea, Denies dyspnea on exertion, Denies orthopnea and Denies paroxysmal nocturnal dyspnea Respiratory: Respiratory: Denies chest congestion, Denies cough, Denies excessive phlegm production, Denies dyspnea and Denies wheezing Gastrointestinal: Gastrointestinal: Denies abdominal pain, Denies dyspepsia, Denies heartburn, Denies diarrhea, Denies nausea and Denies vomiting Genitourinary: Genitourinary: Denies dysuria Musculoskeletal: Musculoskeletal: Denies back pain, Denies myalgias and Denies joint swelling Integumentary/Breasts: Skin/Breast: Denies rash Neurologic: Denies focal weakness and Denies Sensory deficit (Neuro) Psychiatric: Psychiatric: Reports no additional psychiatric complaints and Reports as per HPI Endocrine: Endocrine: Denies cold intolerance, Denies flushing, Denies heat intolerance, Denies polyphagia, Denies polydipsia and Denies palpitations Hematologic/Lymphatic: Hematologic/Lymphatic: Reports no additional hematologic/lymphatic complaints and Reports as per HPI Allergic/Immunologic: Allergic/Immunologic: Reports no additional allergic/immunologic complaints and Reports as per HPI PMFSH Past Medical History Medical History Atrial fibrillation Hemochromatosis Hyperlipidemia Prediabetes Right arm pain Surgical History Surgical History History of colonoscopy History of shoulder surgery Family History Family History Father Acute alcohol abuse Mother Cancer Hypertension Heart and renal disease, hypertensive Social History Social History (Updated 08/22/21 @ 09:45 by Lavonne Egan MA) Social History: Patient stated he is only smoking 2 cigarettes per day, 08/13/2021 Smoking packs per day: 1 Smoking cigarettes per day: 20.0 Years smoked: 41 Smoking pack-years: 41.00 Smoking status: Current every day smoker Second hand tobacco smoke exposure: Yes Alcohol intake: former Meds Home Medications and Allergies Home Medications Medication Instructions Recorded Confirmed Type aspirin 81 mg tablet,delayed 81 mg PO DAILY 01/19/20 08/22/21 History release (Roxanne Low Dose Aspirin) calcium carbonate 600 mg calcium 600 mg PO DAILY 05/17/20 08/22/21 History (1,500 mg) tablet (Calcium)
[2021-10-21] VITALS (19 sets, daily range): BP systolic 104–154; BP diastolic 67–86; PULSE 44–134; RESP 14–24; TEMP 36.4–36.7; O2SAT 97–100; BMI 30.4
--- NOTE | 2021-10-21 | ECHO_ITS ---
Patient Info Name: Jayson Zamudio Age: 60 years : 1960 Gender: Male Ht: 66 in Wt: 187 lbs BSA: 2.01 m2 HR: 43 bpm BP: 110 / 60 mmHg Technical Quality: Good Exam Date: 10/21/2021 8:42 AM Exam Location: [facility] Patient Status: Outpatient Admit Date: 10/21/2021 Staff Ordering Physician: Stephanie Garcia MD Manager Eligibility: Khoa Umanzor, LISA, RT Attending Provider: Stephanie Garcia MD Referring Physician: Radha DALTON; Exam Type: CA echo doppler color flow Study Info Indications I42.2 - Other hypertrophic cardiomyopathy Complete two-dimensional, color flow and Doppler transthoracic echocardiogram is performed. Strain analysis performed. Summary 1. Complete two-dimensional, color flow and Doppler transthoracic echocardiogram is performed. 2. Left ventricular chamber dimension is normal. 3. Left ventricular systolic function is normal, estimated at 60-65%. 4. The left ventricular diastolic function is grade III diastolic dysfunction. 5. E/e' 8 is minimally elevated. 6. Global longitudinal strain is normal at -19.5%. 7. There is trace mitral valve regurgitation. Left Ventricle E/e' 8 is minimally elevated. Global longitudinal strain is normal at -19.5%. Left ventricular chamber dimension is normal. Left ventricular systolic function is normal, estimated at 60-65%. The left ventricular diastolic function is grade III diastolic dysfunction. Right Ventricle Right ventricular systolic function is normal and with normal TAPSE 2.3 cm. Right ventricular chamber dimension is normal. Left Atria Left atrial chamber dimension is normal. Right Atria Right atrial chamber dimension is normal. Aortic Valve The aortic valve is trileaflet. There is no aortic valve stenosis. There is no aortic valve regurgitation. Pulmonic Valve There is no pulmonic regurgitation. Mitral Valve There is no mitral valve stenosis. There is trace mitral valve regurgitation. Tricuspid Valve There is no tricuspid valve regurgitation. Pericardium/Pleural There is no pericardial effusion. Inferior Vena Cava Normal inferior vena cava with >50% collapse upon inspiration consistent with normal right atrial pressure, 5 mmHg. Aorta The aortic root size at the sinus of Valsalva is normal. Left Ventricular Outflow Tract Name Value Normal LVOT 2D LVOT Diameter 2.0 cm LVOT Doppler LVOT Peak Gradient 5 mmHg LVOT Mean Gradient 2 mmHg LVOT VTI 28 cm LVOT VTI/AV VTI Ratio 0.9 LVOT Stroke Volume 84 ml LVOT CO 3.5 l/min LVOT CI 1.7 l/min/m2 Mitral Valve Name Value Normal MV Doppler MV Decel [place] 363 cm/s2
[2021-10-21] MEDS: ASPIRIN 81 MG CHEWABLE TABLET 324 MG PO (00:20)
[2021-10-21 00:58] LABS: Troponin I 0.089 ng/mL (0.000-0.034)
[2021-10-21] MEDS: ENOXAPARIN 100 MG/ML SYRINGE 85 MG SUB-Q (01:20)
--- NOTE | 2021-10-21 04:19 | ECG_ITS ---
Rate 50 [place] 0 QRSd 89 QT 394 QTc 361 --[place]-- P QRS 33 T 55 JUNCTIONAL RHYTHM ABNORMAL ECG Electronically Signed On 10-21-2021 6:24:21 CDT by Jarod Ramsay D.O. COMPARED TO ECG 10/20/2021 21:34:07 JUNCTIONAL RHYTHM NOW PRESENT MTDD
[2021-10-21 04:55] LABS: Troponin I 0.085 ng/mL (0.000-0.034)
--- NOTE | 2021-10-21 05:18 | PC.NURSE ---
Attempted to give report to ICU at this time. Will call back when available.
--- NOTE | 2021-10-21 06:48 | ADMGEN ---
This patient, Jayson Zamudio II, was admitted to Intensive Care Unit-11 on 10/21/2021 0545. Patient/family oriented to hospital policies and general routines including ID bracelet, bed and alarms, visiting hours, pain management, procedures, bathroom and other care routines, personal items, smoking policy, room service/diet, and visiting hours. Information on how to activate the Rapid Response Team has been discussed. Patient/Family are encouraged to report perceived risks to care and to ask questions if they do not understand what they are told or what they should do.
[2021-10-21] MEDS: ASPIRIN 81 MG CHEWABLE TABLET PO (08:20)
--- NOTE | 2021-10-21 10:00 | PM.CNCAR ---
Assessment and Plan Assessment and plan (1) PAF (paroxysmal atrial fibrillation): Code(s): I48.0 - Paroxysmal atrial fibrillation Status: Acute Assessment and Plan: Probably due to COPD, possible JOAO. [id number] 0. Start Aspirin EC 325 mg daily. Back in sinus rhythm but bradycardic. Will monitor HR today since Cardizem stopped several hours ago at 4 am. Check echo. Consider Sotalol if HR improves, if not will go with Flecainide as pill in a pocket. (2) Bradycardia: Code(s): R00.1 - Bradycardia, unspecified Status: Acute (3) Hyperlipidemia: Code(s): E78.5 - Hyperlipidemia, unspecified Status: Acute Assessment and Plan: On Atorvastatin. (4) Elevated troponin: Code(s): R77.8 - Other specified abnormalities of plasma proteins Status: Acute Assessment and Plan: Probably due to rapid atrial fib and not due to ACS. If echo has no WMA, consider lexiscan myoview. History of Present Illness History of Present Illness Consult date/time: 10/21/21 10:00 Consult reason: atrial fibrillation Reason For Visit: AFIB Narrative: 60 yr old man who is my regular cardiology patient who is a patient of Dr. Hdez presents to ER with rapid atrial fib. He has a history of atrial fibrillation several years ago, COPD, smoking, iron overload. Reports for the past year he has felt daily palpitations lasting up to 10 seconds intermittently.? Then yesterday he had racing heart rate and was found to be in rapid atrial fib. Started on Cardizem drip and he spontaneously cardioverted and drip was stopped at 4 am this morning. He is limited at walking in from parking lot due to FIELDS. He smokes 1 ppd but quit in August 2021? Denies orthopnea, PND, chest pain, edema, dizziness. Cardiovascular Procedures Electrophysiology:: 05/17/20 28 days event monitor: Sinus rhythm, HR range 42-162 bpm; average 62 bpm; <1% PAC's and 1% PVC's. 05/17/20 EKG: Sinus rhythm, voltage criteria for LVH. Review of Systems Review of Systems: All systems reviewed & are unremarkable except as noted in HPI and below Constitutional: Constitutional: Reports as per HPI, Denies chills and Denies fever(s) Cardiovascular: Cardiovascular: Reports as per HPI, Denies chest pain, Denies leg edema and Denies lightheadedness Respiratory: Respiratory: Reports as per HPI and Reports dyspnea on exertion Gastrointestinal: Gastrointestinal: Reports as per HPI and Denies abdominal pain Genitourinary: Genitourinary: Reports as per HPI and Denies dysuria Musculoskeletal: Musculoskeletal: Reports as per HPI Neurologic: Reports as per HPI, Denies dizziness and Denies syncope [facility] Past Medical History Medical History (Updated 10/21/21 @ 10:06 by Jarod Ramsay DO) Atrial fibrillation Hemochromatosis Hyperlipidemia Prediabetes Right arm pain Surgical History Surgical History History of colonoscopy History of shoulder surgery Family History Family History Father Acute alcohol abuse Mother Cancer Hypertension Heart and renal disease, hypertensive Social History Social History (Updated 08/22/21 @ 09:45 by Lavonne Egan MA) Social History: Patient stated he is only smoking 2 cigarettes per day, 08/13/2021 Smoking packs per day: 1 Smoking cigarettes per day: 20.0 Years smoked: 42 Smoking pack-years: 42.00 Smoking status: Former smoker Tobacco type: cigarettes Second hand tobacco smoke exposure: Yes Smoking end date: 08/11/21 Alcohol intake: former Substance use: former Substance use type: marijuana Spiritual care concerns: No Meds Home Medications and Allergies Home Medications Medication Instructions Recorded Confirmed Type aspirin 81 mg tablet,delayed 81 mg PO DAILY 01/19/20 10/21/21 History release (Roxanne Low Dose Aspirin) calcium carbonate 600 mg calcium 600 mg
--- NOTE | 2021-10-21 14:11 | PM.IMPN ---
Progress Note: A&P Assessment and Plan (1) PAF (paroxysmal atrial fibrillation): Code(s): I48.0 - Paroxysmal atrial fibrillation Status: Acute Assessment and Plan: Patient presented with AFib RVR could be related to obstructive sleep apnea and/or COPD -chads 2 Vasc is 0 continue aspirin 325 mg daily -patient was on Cardizem infusion which was stopped due to sinus bradycardia in the 40s. -echocardiogram has been ordered -discussed with Cardiology, will not add any medications at this time given his bradycardia. If he has tachy-dipak syndrome, Cardiology may add sotalol (2) Bradycardia: Code(s): R00.1 - Bradycardia, unspecified Status: Acute Assessment and Plan: As above (3) Asthma-COPD overlap syndrome: Code(s): J44.9 - Chronic obstructive pulmonary disease, unspecified Status: Acute Assessment and Plan: Will add bronchodilators (4) Hyperlipidemia: Code(s): E78.5 - Hyperlipidemia, unspecified Status: Acute Assessment and Plan: Continue statin (5) Elevated troponin: Code(s): R77.8 - Other specified abnormalities of plasma proteins Status: Acute Assessment and Plan: Likely related to rapid atrial fibrillation. -will obtain echocardiogram to evaluate for wall motion abnormality Plan Echocardiogram Start bronchodilators Start atorvastatin Additional Plan Code status full code This dictation may have been done utilizing a voice recognition system. Attempts have been made to correct errors. However, there may be uncorrected grammatical, spelling, and recognition errors present. Due to a high probability of clinically significant, life threatening deterioration, the patient required my highest level of preparedness to intervene emergently and I personally spent this critical care time directly and personally managing the patient. This critical care time included obtaining a history; examining the patient; pulse oximetry; ordering and review of studies; arranging urgent treatment with development of a management plan; evaluation of patient's response to treatment; frequent reassessment; and discussions with other providers. It was exclusive of separately billable procedures and treating other patients and teaching time. Please see Assessment and Plan section and the rest of the note for further information on patient assessment and treatment Subjective Date/time seen: 10/21/21 14:11 Interval history: 60-year-old gentleman with history of COPD/emphysema, former smoker, dyslipidemia, atrial fibrillation presented the ED with palpitations on 10/20/2021. Patient was found to be in AFib RVR was started on Cardizem infusion. Patient seen and examined the ICU this morning, remains awake, alert, oriented x3, nonfocal. Patient denies any chest pain, shortness a breath, abdominal pain, nausea, vomiting at this time. He is waiting for his breakfast. Cardizem infusion was discontinued about 3:00 a.m. in the morning as patient was in sinus bradycardia in the 40s, blood pressures have been stable, urine output when adequate Review of Systems Review of Systems: All systems reviewed & are unremarkable except as noted in HPI and below Exam Narrative: General: Pleasant gentleman in no acute distress HEENT: Pupils equal and reactive, sclera is clear Neck: Supple Respiratory: Clear to auscultation bilaterally Cardiac: Sinus bradycardia, S1-S2 is normal Abdomen: Soft, nontender, protuberant, normoactive bowel sounds Extremities: No edema, palpable pedal pulses Neuro: Patient awake, alert, oriented x3, nonfocal Skin: Dry and intact Psych: Normal affect and mentation Objective Data Vital Signs Vital Signs: Vital Signs - 24 hr 10/20/21 21:25 10/20/21 22:11 10/20/21 22:12 Temperature 98.2 F Pulse Rate 161 H 138 H 145 H Respiratory Rate 18 20 17 Blood Pressure 156/92 H 121/73 Pulse Oximetry 99 Oxygen Delivery Room Air
[2021-10-21] MEDS: OMEGA 3 POLYUNSAT FATTY ACIDS 1 GM CAP PO (17:36)
--- NOTE | 2021-10-21 18:32 | PC.NURSE ---
This patient, Jayson Zamudio II, was transferred to [ [facility]] on 10/21/21 at 1820. Personal belongings sent with patient. Report given to [CATHY Schuler @ [phone] ]. Appropriate documentation sent with patient.
--- NOTE | 2021-10-21 18:32 | PC.NURSE ---
This patient, Jayson Zamudio II, was received from [ICU] on 10/21/21 at 1825. Patient/family oriented to unit policies and routines. Patient has no complaints or needs at this time.
[2021-10-21] MEDS: FENOFIBRATE 160 MG TABLET PO (20:25)
[2021-10-21] MEDS: ATORVASTATIN 40 MG TABLET PO (20:25)
[2021-10-21] MEDS: MAG HYDROX/AL HYDROX/SIMETH 30 ML UDC PO (22:07)
[2021-10-22] VITALS (9 sets, daily range): BP systolic 121–147; BP diastolic 70–75; PULSE 44–55; RESP 16–20; TEMP 36.6–36.9; O2SAT 97–99
[2021-10-22 05:46] LABS: Basophils Percent Auto 0.4 % (0.2-1.2); Eosinophils Absolute Auto 0.5 K/mm3 (0-0.3); Eosinophils Percent Auto 5.9 % (0-4.4); Hematocrit 42.4 % (42.0-52.0); Hemoglobin 14.1 g/dL (14.0-18.0); Immature Granulocyte Absolute 0.02 K/mm3 (0.00-0.031); Immature Granulocyte Percent A 0.2 % (0-0.5); Mean Corpuscular HGB Conc 33.3 g/dl (32-36); Mean Corpuscular Hemoglobin 31.5 pg (26-34); Mean Corpuscular Volume 94.9 fl (80-100); Mean Platelet Volume 9.6 fl (7.4-10.4); Monocytes Absolute Auto 0.6 K/mm3 (0.1-0.6); Monocytes Percent Auto 7.8 % (2.6-8.5); Neutrophils Absolute Auto 3.9 K/mm3 (1.3-6.7); Neutrophils Percent Auto 48.7 % (45.5-73.1); Platelet Count Result 276 k/mm3 (150-375); Red Blood Count 4.47 M/mm3 (4.6-6.20); Red Cell Distribution Width 12.7 % (11.5-14.5); White Blood Count 8.1 K/mm3 (4.5-10.0)
[2021-10-22 05:52] LABS: Alanine Aminotransferase 31 U/L (6-50); Albumin Level 3.9 g/dL (3.5-5.1); Alkaline Phosphatase 46 U/L (38-126); Anion Gap 6 mmol/L (8-16); Aspartate Amino Transferase 27 U/L (17-59); Bilirubin,Total 0.5 mg/dL (0.2-1.3); Blood Urea Nitrogen 18 mg/dL (9-20); Calcium 8.7 mg/dL (8.4-10.2); Carbon Dioxide 26 mmol/L (22-30); Chloride 108 mmol/L (98-107); Estimated CRCL calculation 81 ml/min; Estimated Glomerular Filt Rate > 60; Glucose 103 mg/dL (65-110); Magnesium 2.1 mg/dL (1.6-2.3); Phosphorus 2.7 mg/dL (2.5-4.5); Potassium 3.9 mmol/L (3.4-5.0); Sodium 140 mmol/L (137-145)
--- NOTE | 2021-10-22 07:47 | PM.PNCARD ---
Progress Note: A&P Assessment and Plan (1) PAF (paroxysmal atrial fibrillation): Code(s): I48.0 - Paroxysmal atrial fibrillation Status: Acute Assessment and Plan: Probably due to COPD, possible JOAO. [id number] 0. On Aspirin EC 325 mg daily. Back in sinus rhythm but bradycardic. Will monitor HR today since Cardizem stopped several hours ago at 4 am. Echo shows EF 60-65%, grade III diastolic dysfunction (E/e' 8), trace MR. Consider Flecainide as pill in a pocket. May d/c home from cardiology standpoint and have him f/u with me in 1 week. Will perform stress testing as outpatient. (2) Bradycardia: Code(s): R00.1 - Bradycardia, unspecified Status: Acute Assessment and Plan: Asymptomatic. (3) Hyperlipidemia: Code(s): E78.5 - Hyperlipidemia, unspecified Status: Acute Assessment and Plan: On Atorvastatin. (4) Elevated troponin: Code(s): R77.8 - Other specified abnormalities of plasma proteins Status: Acute Assessment and Plan: Probably due to rapid atrial fib and not due to ACS. (5) Hypersomnia: Code(s): G47.10 - Hypersomnia, unspecified Status: Acute Assessment and Plan: Will need sleep study as an outpatient. Subjective Date/time seen: 10/22/21 07:47 Denies chest pain or sob. He wants to go home. Exam Const: General: cooperative, healthy appearing and comfortable Resp: Auscultation: clear to auscultation bilaterally, no crackles, no rales, no rhonchi and no wheezes Cardio: Jugular venous distension: no JVD Rate: bradycardic Rhythm: regular rhythm Heart sounds: no murmurs Peripheral pulses: dorsalis pedis present GI: GI Palp: No abdominal tenderness and Yes Soft to palpation Neuro: General: oriented to person, oriented to place and oriented to time Extrem: Right lower extremity: no edema Left lower extremity: no edema Objective Data Vital Signs Vital Signs: Vital Signs - 24 hr 10/21/21 08:00 10/21/21 08:00 10/21/21 08:00 Temperature 97.7 F Pulse Rate 45 L 49 L Respiratory Rate 17 Blood Pressure 133/76 Pulse Oximetry 100 100 Oxygen Delivery Room Air 10/21/21 10:00 10/21/21 12:00 10/21/21 12:00 Temperature 97.9 F Pulse Rate 53 L 47 L 46 L Respiratory Rate 19 Blood Pressure 122/71 Pulse Oximetry 98 Oxygen Delivery 10/21/21 12:00 10/21/21 14:00 10/21/21 15:59 Temperature 97.6 F Pulse Rate 44 L 55 L Respiratory Rate 17 Blood Pressure 154/85 H Pulse Oximetry 98 99 Oxygen Delivery Room Air 10/21/21 16:00 10/21/21 16:00 10/21/21 18:29 Temperature Pulse Rate 58 L 55 L Respiratory Rate Blood Pressure Pulse Oximetry 100 Oxygen Delivery Room Air 10/21/21 19:43 10/21/21 20:00 10/21/21 20:00 Temperature 98.1 F Pulse Rate 50 L 52 L 52 L Respiratory Rate 20 20 Blood Pressure 132/67 Pulse Oximetry 98 98 Oxygen Delivery Room Air 10/21/21 22:00 10/21/21 22:51 10/22/21 00:00 Temperature 97.9 F Pulse Rate 50 L 57 L 52 L Respiratory Rate 18 Blood Pressure 126/70 Pulse Oximetry 99 Oxygen Delivery 10/22/21 00:00 10/22/21 02:00 10/22/21 04:00 Temperature Pulse Rate 52 L 48 L 50 L Respiratory Rate 18 Blood Pressure Pulse Oximetry 99 Oxygen Delivery Room Air 10/22/21 04:00 10/22/21 04:00 10/22/21 06:00 Temperature Pulse Rate 50 L 55 L 48 L Respiratory Rate 18 20 Blood Pressure 121/75 Pulse Oximetry 99 97 Oxygen Delivery Room Air Intake/Output Intake/Output: Intake & Output 10/19/21 10/20/21 10/21/21 10/22/21 23:59 23:59 23:59 23:59 Intake Total 1000 1490 240 Output Total 500 Balance 1000 990 240 Meds/Results Medications: Active Medications Generic Name Dose Route Start Last Admin Trade Name Freq PRN Reason Stop Dose Admin Al Hydrox/Mg Hydrox/Simethicone 30 ml 10/21/21 21:52 10/21/21 22:07 Mag Hydrox/Al Hydrox/Simeth 30 Ml Udc PO 30 ml BID PRN A
[2021-10-22] MEDS: OMEGA 3 POLYUNSAT FATTY ACIDS 1 GM CAP PO (10:02)
[2021-10-22] MEDS: ASPIRIN 325 MG TABLET PO (10:02)
--- NOTE | 2021-10-22 12:08 | PM.DS ---
DS: Admitting Diagnosis Discharge Date 10/22/2021 Admitting Diagnosis palpitation DS: Discharge Diagnosis Discharge Diagnosis (1) PAF (paroxysmal atrial fibrillation): Code(s): I48.0 - Paroxysmal atrial fibrillation Status: Acute Assessment and Plan: Patient presented with AFib RVR could be related to obstructive sleep apnea and/or COPD -chads 2 Vasc is 0 continue aspirin 325 mg daily -patient was on Cardizem infusion which was stopped due to sinus bradycardia in the 40s. -echocardiogram has been ordered -discussed with Cardiology, will not add any medications at this time given his bradycardia. If he has tachy-dipak syndrome, Cardiology may add sotalol (2) Bradycardia: Code(s): R00.1 - Bradycardia, unspecified Status: Acute Assessment and Plan: As above (3) Asthma-COPD overlap syndrome: Code(s): J44.9 - Chronic obstructive pulmonary disease, unspecified Status: Acute Assessment and Plan: Will add bronchodilators (4) Hyperlipidemia: Code(s): E78.5 - Hyperlipidemia, unspecified Status: Acute Assessment and Plan: Continue statin (5) Elevated troponin: Code(s): R77.8 - Other specified abnormalities of plasma proteins Status: Acute Assessment and Plan: Likely related to rapid atrial fibrillation. -will obtain echocardiogram to evaluate for wall motion abnormality Plan Echocardiogram Start bronchodilators Start atorvastatin DS: Summary Hospital Course Reason for hospitalization: Chief Complaint: ?palpitations Narrative: ?this is a 60-year-old male with past medical history significant for COPD / emphysema, former smoker 40 pack year smoking history dyslipidemia.? Patient presents to the emergency room due to palpitations fluttery feeling in his chest pounding of the chest, denies any nausea, vomiting, dizziness, lightheadedness, near-syncope, syncope, no cough, no sputum production, no leg swelling, no pedal swelling, no ankle swelling, no calves pain,? no fevers, no rigors, no chills, no chest pain. upon arrival to emergency room patient was found to have atrial fibrillation with rapid ventricular response and placed on Cardizem drip.? Preliminary workup was significant for elevated troponin. patient has been in his usual state of health up until this moment.? Decision has been made to admit patient for further evaluation management and treatment. Hospital Course: patient presented with atrial fibrillation with RVR seen by cardiology suspect most likely secondary to COPD and sleep apnea patient was started on Cardizem drip and converted back to sinus thought bradycardia, clinically stable seen by Cardiology patient can be discharged home to follow-up in the clinic in 1 week. Time Spent with Patient Time attestation: Total time spent providing and/or coordinating discharge services: Exam Narrative: moderately obese Patient is comfortable, NAD HEENT: eyes are clear and none icteric LUNGS: normal respiratory effort ABD: distended Lower extremities: no edema SKIN: nonjaundiced Neuro: grossly intact. DS: Data Data Completed and Pending Labs on day of discharge: Labs from last 24 hours 10/22/21 10/22/21 05:18 05:18 WBC 8.1 RBC 4.47 L Hgb 14.1 Hct 42.4 MCV 94.9 MCH 31.5 MCHC 33.3 RDW 12.7 Plt Count 276 MPV 9.6 Immature Gran % (Auto) 0.2 Neut % (Auto) 48.7 Lymph % (Auto) 37.0 [place] % (Auto) 7.8 Eos % (Auto) 5.9 H Baso % (Auto) 0.4 Lymph # (Auto) 3.00 [place] # (Auto) 0.6 Eos # (Auto) 0.5 H Baso # (Auto) 0.0 Abs Immat Gran (auto) 0.02 Absolute Neuts (auto) 3.9 Absolute Nucleated RBC 0.0 Nucleated RBC % 0.0 Sodium 140 Potassium 3.9 Chloride 108 H Carbon Dioxide 26 Anion Gap 6 L BUN 18 Creatinine 0.90 Estim Creat Clear Calc 81 Estimated GFR > 60 Glucose 103 Calcium 8.7 Phosphorus 2.7 Magnesium 2.1 Total Bilirubin 0.5 AST
--- NOTE | 2021-10-22 13:25 | PC.NURSE ---
Pt has an order to be discharged. Discharge forms explained and given to pt, PIV taken out. 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
== END 2021-10-22 13:20 | disposition home or self-care (01) ==
LOC: ANHED 23:54 → ANHICU 10-21 05:45 → ANHIMU 10-21 21:05 → ANHICU 10-23 11:29 → ANHIMU 10-23 11:29
PROVIDERS: Internal Medicine; Admitting Provider Internal Medicine; Emergency Provider Emergency Medicine; PCP Emergency Medicine; Visit Provider Family Medicine
DX: I48.0 Paroxysmal atrial fibrillation (principal); R00.1 Bradycardia, unspecified; E78.5 Hyperlipidemia, unspecified; R77.8 Other specified abnormalities of plasma proteins; G47.10 Hypersomnia, unspecified; J44.9 Chronic obstructive pulmonary disease, unspecified; E83.119 Hemochromatosis, unspecified; R00.2 Palpitations; R94.31 Abnormal electrocardiogram [ECG] [EKG]; F17.210 Nicotine dependence, cigarettes, uncomplicated; Z79.82 Long term (current) use of aspirin; Z20.822 Contact with and (suspected) exposure to COVID-19; Z79.899 Other long term (current) drug therapy
CPT/HCPCS: 36415; 71045; 80053; 80307; 81001; 83735; 83880; 84100; 84484; 85025; 85610; 85730; 93005; 93306; 96361; 96365; 96366; 96372; 99285; A9270; C9803; G0378; G0379; J1650; J7030; U0003; U0005

== ENCOUNTER 2021-11-02 10:30 | Emergency (ER) | payer OTHER, SELFPAY ==
--- NOTE | ~2021-11-02 | XR_ITS ---
EXAMINATION: XR chest 1V portable Exam Date/Time: 11/02/2021 15:15 CDT HISTORY: heart palp,no pain Comparison: 10/20/2021. RESULT: Lines, tubes, and devices: None. Lungs and pleura: Clear. Cardiomediastinal silhouette: Stable cardiomediastinal silhouette. Other: No acute osseous or upper abdominal finding. IMPRESSION: No acute cardiopulmonary process. Reviewed, dictated and finalized at location K.
[2021-11-02 10:35] VITALS: PULSE 52; RESP 15; TEMP 36.2; O2SAT 98
--- NOTE | 2021-11-02 10:39 | ECG_ITS ---
Measurements Intervals [place] Rate: 44 P: 47 NC: 157 QRS: 10 QRSD: 93 T: 49 QT: 402 QTc: 346 Interpretive Statements SINUS BRADYCARDIA VOLTAGE CRITERIA FOR LVH CONSIDER INFERIOR INFARCT, AGE INDETERMINATE BASELINE ARTIFACT- I, II, III, AVR, AVL, V1 ABNORMAL ECG Electronically Signed On 11-02-2021 22:55:17 CDT by Jarod Ramsay D.O.
[2021-11-02 11:24] LABS: Basophils Percent Auto 0.5 % (0.2-1.2); Eosinophils Absolute Auto 0.2 K/mm3 (0-0.3); Eosinophils Percent Auto 3.2 % (0-4.4); Hematocrit 43.4 % (42.0-52.0); Hemoglobin 14.9 g/dL (14.0-18.0); Immature Granulocyte Absolute 0.02 K/mm3 (0.00-0.031); Immature Granulocyte Percent A 0.3 % (0-0.5); Lymphocytes Absolute Auto 2.53 K/mm3 (0.9-3.2); Lymphocytes Percent Auto 33.9 % (18.3-44.2); Mean Corpuscular HGB Conc 34.3 g/dl (32-36); Mean Corpuscular Hemoglobin 32.3 pg (26-34); Mean Corpuscular Volume 94.1 fl (80-100); Mean Platelet Volume 10.6 fl (7.4-10.4); Monocytes Absolute Auto 0.7 K/mm3 (0.1-0.6); Monocytes Percent Auto 9.4 % (2.6-8.5); Neutrophils Absolute Auto 3.9 K/mm3 (1.3-6.7); Neutrophils Percent Auto 52.7 % (45.5-73.1); Platelet Count Result 323 k/mm3 (150-375); Red Blood Count 4.61 M/mm3 (4.6-6.20); Red Cell Distribution Width 12.7 % (11.5-14.5); White Blood Count 7.5 K/mm3 (4.5-10.0)
[2021-11-02 11:31] LABS: Alanine Aminotransferase 34 U/L (6-50); Albumin Level 4.7 g/dL (3.5-5.1); Alkaline Phosphatase 47 U/L (38-126); Anion Gap 8 mmol/L (8-16); Aspartate Amino Transferase 29 U/L (17-59); Bilirubin,Total 0.6 mg/dL (0.2-1.3); Blood Urea Nitrogen 20 mg/dL (9-20); Calcium 9.9 mg/dL (8.4-10.2); Carbon Dioxide 26 mmol/L (22-30); Chloride 104 mmol/L (98-107); Estimated Glomerular Filt Rate > 60; Glucose 132 mg/dL (65-110); Magnesium 2.2 mg/dL (1.6-2.3); Potassium 4.1 mmol/L (3.4-5.0); Sodium 138 mmol/L (137-145)
[2021-11-02 11:42] LABS: Troponin I < 0.012 ng/mL (0.000-0.034)
--- NOTE | 2021-11-02 11:57 | ED.GENADULT ---
HPI - General Adult General Chief complaint: Arrhythmia/Palpitations Stated complaint: irregular HR, low O2 Time Seen by Provider: 11/02/21 10:42 History of Present Illness HPI narrative: 61-year-old male presented the emergency department for evaluation of rapid heart rate. Patient states this morning while he was doing dishes he had onset of approximately 30 seconds of rapid heart rate. Patient did not have any chest pain with this but states he did feel like he had a rapid and bounding pulse. Patient states that it occurred every 5 minutes for a few times and patient finally decided he needed to come in and get evaluated. Patient states he was diagnosed with atrial fibrillation on October 20. Patient does not take any calcium channel blockers or medications for rate control. Patient does take a daily aspirin. Patient is scheduled for an outpatient chemical stress test on November 12. Patient denies any prior history of [place]. Patient denies any complaints at this time. Patient does have a resting heart rate in the 40s which she states is normal for him. Related Data Home Medications Medication Instructions Recorded Confirmed calcium carbonate 600 mg calcium 600 mg PO DAILY 05/17/20 10/29/21 (1,500 mg) tablet (Calcium) garlic 1,000 mg capsule 1,000 mg PO DAILY 05/17/20 10/29/21 melatonin 3 mg capsule 3 mg PO HS 05/17/20 10/29/21 cholecalciferol (vitamin D3) 25 5,000 unit PO DAILY 01/03/21 10/29/21 mcg (1,000 unit) capsule magnesium 250 mg tablet 250 mg PO DAILY 07/03/21 10/29/21 cyanocobalamin (vitamin B-12) 500 1,000 mcg PO DAILY 08/22/21 10/29/21 mcg tablet (Vitamin B-12) Allergies Allergy/AdvReac Type Severity Reaction Status Date / Time dextromethorphan Allergy Unknown unknown Verified 10/29/21 08:55 doxylamine Allergy Unknown unknown Verified 10/29/21 08:55 pseudoephedrine Allergy Unknown Unknown Verified 10/29/21 08:55 Review of Systems Review of Systems: CONSTITUTIONAL: Denies fever, chills, or sweats. EYES: Denies visual changes, redness, or discharge. ENT: Denies rhinorrhea, congestion, sore throat, or otalgia. CARDIOVASCULAR: See HPI RESPIRATORY: Denies cough or dyspnea. GASTROINTESTINAL: Denies abdominal pain, nausea, vomiting, or diarrhea. GENITOURINARY: Denies dysuria or hematuria. SKIN: Denies rash or itching. MUSCULOSKELETAL: Denies back pain, joint pain, or myalgia. NEUROLOGIC: Denies headache, numbness, or weakness. [facility] Past Medical History Medical History Atrial fibrillation Hemochromatosis Hyperlipidemia Prediabetes Right arm pain Surgical History Surgical History History of colonoscopy History of shoulder surgery Family History Family History Father Acute alcohol abuse Mother Cancer Hypertension Heart and renal disease, hypertensive Social History Social History Social History: Patient stated he is only smoking 2 cigarettes per day, 08/13/2021 Smoking packs per day: 1 Smoking cigarettes per day: 20.0 Years smoked: 42 Smoking pack-years: 42.00 Smoking status: Former smoker Tobacco type: cigarettes Second hand tobacco smoke exposure: Yes Smoking end date: 08/11/21 Alcohol intake: former Substance use: former Substance use type: marijuana Spiritual care concerns: No Exam Narrative: APPEARANCE: Well appearing, no pain, no distress, well-nourished. HEAD: normocephalic, atraumatic. EYES: PERRLA/EOMI, conjunctivae clear. NOSE: Normal no drainage NECK: Supple. No adenopathy, no masses. RESPIRATORY: Airway patent, respirations nonlabored. Clear to auscultation bilaterally, no rales, rhonchi, wheezing. CARDIOVASCULAR: Regular rate and rhythm without murmurs rubs or gallops. ABDOMINAL: Soft, nontender, nondistended, normal bowel soun
[2021-11-02 13:02] LABS: Appearance Urine Clear (Clear); Bilirubin Urine Negative (Negative); Color Urine Yellow (Yellow); Glucose Urine UA Negative (Negative); Ketones Urine Negative (Negative); Leukocyte Esterase Ur Negative LEU/UL (Negative); Nitrate Urine Negative (Negative); Protein Urine Negative (Negative); Urobilinogen Urine 0.2 mg/dL (<2.0); pH Urine 6.5 (5.0-9.0)
[2021-11-02 13:10] LABS: Add Urine Microscopic? YES; Blood Urine Trace-Intact (Negative)
[2021-11-02 13:13] LABS: Mucus Urine Rare /lpf; RBC Urine 0-2 /hpf (0-2); WBC Urine 0-3 /hpf
[2021-11-02 13:17] LABS: Amphetamine Screen Urine Negative (Negative); Barbiturate Screen Urine Negative (Negative); Benzodiazepines Screen Urine Negative (Negative); Cannabinoid Screen Urine Negative (Negative); Cocaine Screen Urine Negative (Negative); Methadone Screen Urine Negative (Negative); Opiate Screen Urine Negative (Negative); Phencyclidine Screen Urine Negative (Negative)
[2021-11-02 14:26] LABS: Troponin I < 0.012 ng/mL (0.000-0.034)
== END 2021-11-02 16:09 | disposition home or self-care (01) ==
PROVIDERS: Emergency Provider Emergency Medicine; PCP Emergency Medicine
DX: R00.2 Palpitations (principal); I48.91 Unspecified atrial fibrillation; E83.119 Hemochromatosis, unspecified; E78.5 Hyperlipidemia, unspecified; R73.03 Prediabetes; F17.210 Nicotine dependence, cigarettes, uncomplicated; Z79.82 Long term (current) use of aspirin
CPT/HCPCS: 36415; 71045; 80053; 80307; 81001; 83735; 84443; 84484; 85025; 93005; 99284

== ENCOUNTER 2021-12-30 08:27 | Outpatient (CLI) | payer OTHER, SELFPAY ==
--- NOTE | ~2021-12-30 | NM_ITS ---
EXAMINATION: NM bello stress w perfusion DATE: 12/30/2021 10:08 INDICATION: Chest pain TECHNIQUE: Rest images were obtained following intravenous administration of 10.2 mCi Tc99m tetrofosm in (Myoview). The patient was infused intravenously with Lexiscan (Regadenoson). Then, 33.0 mCi Tc99m tetrofosmin (Myoview) was administered intravenously, and stress images were obtained. Data was daquan nstructed into short axis and horizontal and vertical long axis SPECT images. Gated SPECT images were also obtained. COMPARISON: None. FINDINGS: There is no definite reversible or fixed perfusion abnormality to suggest ischemia or infar ction. There is normal left ventricular chamber size, wall motion and ejection fraction. Left ventr icular ejection fraction measures >70%. IMPRESSION: 1. Normal myocardial perfusion at rest and during stress. 2. Left ventricular ejection fraction measuring >70%. Reviewed, dictated and finalized at location A.
--- NOTE | 2021-12-30 08:54 | EST_ITS ---
Patient Info Name: Jayson Zamudio Age: 61 years : 1960 Gender: Male Ht: 66 in Wt: 180 lbs BSA: 1.97 m2 Exam Date: 12/30/2021 9:21 AM Exam Location: [facility] Stress Patient Status: Outpatient Admit Date: 12/30/2021 Staff Ordering Physician: Jarod Ramsay DO Attending Provider: Jarod Ramsay DO Exercise Technologist: Marcelle Garcia CT Exercise Physician: Jarod Ramsay DO Exam Type: CA stress bello w NM Study Info Indications R07.9 - Chest pain, unspecified A regadenoson stress test was performed. Summary 1. 1. Negative lexiscan stress test for ischemic ST changes by ECG criteria. 2. 2. Stable hemodynamics throughout the test. 3. 3. Nuclear scan to follow and will be reported separately. Please correlate with it. 4. 4. Patient informed of the above results. Protocol: Lexiscan Stress ECG Details Stage: REST Duration (min): 5 min : 30 sec HR (bpm): 39 SBP (mmHg): 147 DBP (mmHg): 61 Stage: REST Duration (min): 9 min : 42 sec HR (bpm): 39 SBP (mmHg): 165 DBP (mmHg): 74 Stage: STAGE 1 Duration (min): 1 min : 0 sec HR (bpm): 58 SBP (mmHg): 165 DBP (mmHg): 74 Stage: RECOVERY Duration (min): 1 min : 0 sec HR (bpm): 69 SBP (mmHg): 165 DBP (mmHg): 74 Stage: RECOVERY Duration (min): 2 min : 0 sec HR (bpm): 69 SBP (mmHg): 115 DBP (mmHg): 80 Stage: RECOVERY Duration (min): 3 min : 0 sec HR (bpm): 64 SBP (mmHg): 111 DBP (mmHg): 81 Stage: RECOVERY Duration (min): 4 min : 0 sec HR (bpm): 64 SBP (mmHg): 111 DBP (mmHg): 81 Stage: REST Duration (min): 9 min : 42 sec HR (bpm): 68 SBP (mmHg): 113 DBP (mmHg): 79 Stage: RECOVERY Duration (min): 5 min : 0 sec HR (bpm): 68 SBP (mmHg): 113 DBP (mmHg): 79 Rest HR: 68 bpm Peak HR: 72 bpm Rest Sys BP: 165 mmHg Peak Sys BP: 115 mmHg Max Pred HR: 161 bpm % Max Pred HR: 45 % Target HR: 137 bpm Max RPP: 8,280 bpm*mmHg Termination Reason: Completed protocol Cardiac Symptoms: SOB, flushed Total Time: 1 min : 0 sec Rest Patel BP: 74 mmHg Peak Patel BP: 80 mmHg Total Dose: 0.4 mg Resting ECG Sinus bradycardia. Stress ECG No ST changes. Arrhythmias None. Report Signatures
== END 2021-12-30 08:28 | disposition home or self-care (01) ==
LOC: ANHCARD 08:28
PROVIDERS: PCP Emergency Medicine; Visit Provider Internal Medicine Cardiovascular Disease
DX: R07.89 Other chest pain (principal)
CPT/HCPCS: 78452; 93017; A9502; J2785

== ENCOUNTER 2022-01-09 12:30 | Outpatient (CLI) | payer OTHER, SELFPAY ==
[2022-01-09 12:45] VITALS: PULSE 52; O2SAT 97
[2022-01-09 12:50] VITALS: PULSE 74; O2SAT 92
[2022-01-09 13:05] VITALS: PULSE 52; O2SAT 96
--- NOTE | 2022-01-09 13:15 | HOMEO2EVAL ---
Evaluation was performed at [facility] Home Oxygen Evaluation RC: Home Oxygen (O2) Evaluation Start: 01/09/22 13:13 Freq: Status: Active Protocol: RPE Activity Type Activity Date Activity User E-sign Co-sign Detail Recorded Client Recorded Date Recorded By Document 01/09/22 12:45 TONY [id number] 01/09/22 13:15 TONY Document 01/09/22 12:50 TONY [email or web address] 01/09/22 13:15 TONY Document 01/09/22 13:05 TONY [id number] 01/09/22 13:15 TONY 01/09/22 01/09/22 01/09/22 12:45 12:50 13:05 Home O2 Evaluation Test Phase Resting Exercise Resting Oxygen Delivery Room Air Room Air Pulse Oximetry (90-100 %) 97 92 96 Pulse Rate (60-100 beats/min) 52 L 74 52 L Activity Tolerance Excellent Ambulation Distance (feet) 1,500 Ambulation Distance (meters) 457.17 Treatment Charges O2 Evaluation - Inpatient
== END 2022-01-09 12:31 | disposition home or self-care (01) ==
LOC: ANHPFT 12:31
PROVIDERS: PCP Emergency Medicine; Visit Provider Physician Assistant
DX: G47.10 Hypersomnia, unspecified (principal); J44.9 Chronic obstructive pulmonary disease, unspecified; R06.00 Dyspnea, unspecified
CPT/HCPCS: 94618

== ENCOUNTER → 2022-01-23 08:04 | Outpatient (CLI) | payer OTHER, SELFPAY ==
--- NOTE | ~2022-01-23 | XR_ITS ---
EXAMINATION: XR shoulder RT min 2V, XR humerus RT DATE: 01/23/2022 08:55 INDICATION: Right shoulder and upper arm pain TECHNIQUE: 1. AP internally and externally rotated, AP oblique externally rotated and transscapular Y views of t he affected shoulder were obtained. 2. AP and lateral views of the right humerus were obtained. COMPARISON: None FINDINGS: Normal alignment at the right shoulder and elbow. No fracture.Mild glenohumeral and acromioclavicula r osteoarthritis. Joint space at the right elbow appear relatively preserved. Small olecranon spur. L ucency and metallic fixation button at the radial tuberosity likely representing an anchor for prior distal biceps tendon repair. 8.5 x 2.3 cm lenticular lucency aligned along the axis of the muscle fib ers in the distal deltoid muscle most consistent with an intramuscular lipoma. Soft tissues are other [place] unremarkable. Right lung is clear. IMPRESSION: 1. 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 No acute osseous abnor mality. 2. [place] site at the radial tuberosity suggesting prior distal biceps tendon repair. 3. 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 Reviewed, dictated and finalized at location A. IMPRESSION: 1. 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 No acute osseous abnormality. 2. [place] site at the radial tuberosity suggesting prior distal biceps tendon r epair. 3. 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
--- NOTE | ~2022-01-23 | XR_ITS ---
EXAMINATION: XR lumbar spine 2-3V DATE: 01/23/2022 08:55 INDICATION: Right-sided low back pain. TECHNIQUE: 3 views of lumbar spine were obtained. COMPARISON: None. FINDINGS: There is a 4 degrees levocurvature of lumbar spine. Vertebral body heights are normal. Ther e is mildly decreased disc height at L1-L2 and L3-L4 and moderately decreased disc height at L4-L5. T here are endplate osteophytes at most levels. There is severe facet joint osteoarthritis in lower lum bar spine. IMPRESSION: 1. Moderate lumbar spondylosis. Reviewed, dictated and finalized at location B.
== END ==
PROVIDERS: PCP Emergency Medicine; Visit Provider Emergency Medicine
DX: M79.621 Pain in right upper arm (principal); M47.896 Other spondylosis, lumbar region; M19.011 Primary osteoarthritis, right shoulder
CPT/HCPCS: 72100; 73030; 73060

== ENCOUNTER 2022-02-02 08:04 | Outpatient (CLI) | payer OTHER, SELFPAY ==
--- NOTE | 2022-02-10 11:34 | WPDSLEEPSTUD ---
Sleep Study Date of Study: 02/02/22 Ordering Provider: MANDO Boswell Interpreting Physician: Leda Ulloa DO Sleep Study Type: Polysomnogram Height: 1.68 m Weight: 83.915 kg Body Mass Index: 29.8 Neck Circumference (inches): 16.5 Dowell: 7 Reason for Sleep Study Daytime hypersomnia Sleep History The patient is a 61-year-old male with asthma COPD overlap, atrial fibrillation, hemochromatosis, hyperlipidemia, prediabetes and history of tobacco use that had a sleep study ordered by the Pulmonary group for evaluation of sleep apnea. The patient rarely awakens from sleep short of breath. He occasionally awakens at night with heartburn, belching or cough. He denies snoring. He frequently has trouble sleeping when he has a cold. He rarely wakes up gasping for air throughout the night. He rarely has breathing problems at night observed by himself or others. He occasionally sweats excessively at night. He frequently has heart palpitations or irregular heartbeats during the night. He occasionally falls asleep during the day but never while driving. He rarely experiences loss of muscle tone when extremely emotional. He occasionally has trouble at school or work due to sleepiness. He denies sleep paralysis. He frequently experiences vivid dreamlike scenes upon awakening or falling asleep. He occasionally feels afraid of going to sleep. He occasionally has nightmares. He rarely remembers his dreams. He occasionally has thoughts racing through his mind. He rarely feels sad or depressed. He constantly has anxiety. He rarely has muscular tension. He frequently notices parts of his body jerk. He frequently kicks during the night. He occasionally experiences crawling and aching feelings in his legs but rarely has leg pain during the night. He denies grinding his teeth during sleep awakening with morning jaw pain. He is occasionally bothered by pain during the day and occasionally awakened by pain during the night. He occasionally wakes up feeling stiff in the morning. He occasionally wakes up with sore achy muscles. He frequently wakes up with pain in the neck, spine and other joints. He goes to bed 8:45 p.m. on both weekdays and weekends. It takes him 30-45 minutes to fall asleep. He wakes up 3 times throughout the night to urinate. When he awakens, he will notice that his heart is racing. He is able to fall back asleep within 15-20 minutes. He wakes up at 3:00 a.m. on both weekdays and weekends. He typically gets 4-5 hours of sleep per night. He currently lives alone. He denies consuming any caffeinated beverages within 2 hours of bedtime. He denies engaging in physical exercise before bedtime. He denies reading watching television before falling asleep. He will take naps in the afternoon or the evening and they are refreshing. He quit smoking cigarettes on August 12, 2021. He denies caffeine, alcohol and recreational drug use. [facility] Past Medical History Medical History Atrial fibrillation Hemochromatosis Hyperlipidemia Prediabetes Right arm pain Surgical History Surgical History History of colonoscopy History of shoulder surgery Family History Family History Father Acute alcohol abuse Mother Cancer Hypertension Heart and renal disease, hypertensive Social History Social History Social History: Patient stated he is only smoking 2 cigarettes per day, 08/13/2021 Smoking packs per day: 1 Smoking cigarettes per day: 20.0 Years smoked: 42 Smoking pack-years: 42.00 Smoking status: Former smoker Tobacco type: cigarettes Second hand tobacco smoke exposure: Yes Smoking end date: 08/11/21 Alcohol intake: former Substance use: former Substance use type:
[2022-02-10 11:52] VITALS: BMI 29.8
== END 2022-02-03 04:49 | disposition home or self-care (01) ==
LOC: ANHCSM 08:05
PROVIDERS: PCP Emergency Medicine; Visit Provider Physician Assistant
DX: G47.61 Periodic limb movement disorder (principal); G47.10 Hypersomnia, unspecified
CPT/HCPCS: 95810

== ENCOUNTER 2022-05-24 09:22 | Outpatient (CLI) | payer OTHER, SELFPAY ==
--- NOTE | ~2022-05-24 | CT_ITS ---
CT Scan of the Chest without Contrast: Clinical Indication: Personal history of tobacco dependence, lung cancer screening Technique: Contiguous sections were acquired throughout the chest without intravenous contrast. Dose reduction technique was used on this scan by utilizing automated exposure control and iterative recon struction technique. The dose-length product (DLP) was 156.39 mGy-cm. COMPARISON: 03/17/2022 and 03/01/2020 Findings: There is no evidence of any significant mediastinal, hilar or axillary lymphadenopathy. Mild coronary artery calcifications are present. No aortic aneurysm. There is no evidence of pleural or pericardial effusion. Stable subcentimeter, possibly calcified nodule in the right upper lobe. No new or suspicious pulmona ry nodule identified. Images through the upper abdomen reveal probable diffuse fatty infiltration of liver. Impression: Lung-RADS 2: Benign appearance. 12 month follow up screening CT recommended. No change from prior exam. Reviewed, dictated and finalized at [facility]. E FINISHER Impression: Lung-RADS 2: Benign appearance. 12 month follow up screening CT recommended. No change from prior exam.
== END 2022-05-24 09:23 | disposition home or self-care (01) ==
PROVIDERS: PCP Emergency Medicine; Visit Provider Emergency Medicine
DX: Z12.2 Encounter for screening for malignant neoplasm of respiratory organs (principal); Z87.891 Personal history of nicotine dependence
CPT/HCPCS: 71271

== ENCOUNTER 2022-06-30 07:40 | Outpatient (CLI) | payer OTHER, SELFPAY ==
--- NOTE | ~2022-06-30 | US_ITS ---
Limited Abdominal Sonogram: Real-time sonographic imaging of the right upper quadrant was performed. Clinical History: Fatty liver Findings: The liver appears echogenic, with no evidence of mass lesion or bile duct dilatation. Main portal vein demonstrates normal direction of flow. The gallbladder is well distended, and appears no rmal with no evidence of gallstone or wall thickening. The common bile duct measures 5 mm. The visua lized pancreas, aorta, and IVC are unremarkable. Impression: Diffuse fatty infiltration of liver. Reviewed, dictated and finalized at location M. Impression: Diffuse fatty infiltration of liver.
== END 2022-06-30 07:41 | disposition home or self-care (01) ==
PROVIDERS: PCP Emergency Medicine; Visit Provider Emergency Medicine
DX: K76.0 Fatty (change of) liver, not elsewhere classified (principal)
CPT/HCPCS: 76705

== ENCOUNTER 2022-09-02 23:33 | Emergency (ER) | payer OTHER, SELFPAY ==
--- NOTE | ~2022-09-02 | XR_ITS ---
Clinical Indication: Palpitations PA and lateral views of the chest: Comparison: 11/02/2021 Findings: The lungs are clear, without evidence of focal consolidation or pleural effusion. Cardiome diastinal silhouette is within normal limits. Bones and soft tissues are unremarkable. Impression: Normal chest. Reviewed, dictated and finalized at location . Impression: Normal chest.
--- NOTE | 2022-09-02 23:56 | ECG_ITS ---
Measurements Intervals [place] Rate: 52 P: 47 VT: 186 QRS: 30 QRSD: 94 T: 67 QT: 421 QTc: 392 Interpretive Statements SINUS BRADYCARDIA WITH MARKED SINUS ARRHYTHMIA BASELINE ARTIFACT- V2 BORDERLINE ECG COMPARED TO ECG 11/02/2021 10:39:48 SINUS ARRHYTHMIA NOW PRESENT Electronically Signed On 09-03-2022 6:22:53 CDT by Jarod Ramsay D.O.
[2022-09-03 00:04] LABS: Basophils Absolute Auto 0.1 K/mm3 (0.0-0.1); Basophils Percent Auto 0.6 % (0.2-1.2); Eosinophils Absolute Auto 0.3 K/mm3 (0-0.3); Hematocrit 43.3 % (42.0-52.0); Hemoglobin 14.7 g/dL (14.0-18.0); Immature Granulocyte Absolute 0.02 K/mm3 (0.00-0.031); Immature Granulocyte Percent A 0.2 % (0-0.5); Lymphocytes Absolute Auto 3.34 K/mm3 (0.9-3.2); Lymphocytes Percent Auto 41.5 % (18.3-44.2); Mean Corpuscular HGB Conc 33.9 g/dl (32-36); Mean Corpuscular Volume 94.1 fl (80-100); Mean Platelet Volume 10.3 fl (7.4-10.4); Monocytes Absolute Auto 0.8 K/mm3 (0.1-0.6); Monocytes Percent Auto 9.6 % (2.6-8.5); Neutrophils Absolute Auto 3.5 K/mm3 (1.3-6.7); Neutrophils Percent Auto 44.1 % (45.5-73.1); Platelet Count Result 320 k/mm3 (150-375); Red Cell Distribution Width 12.6 % (11.5-14.5)
[2022-09-03 00:15] LABS: Partial Thromboplastin Time 31.2 SECONDS (22.3-36.8); Prothrombin Time 13.2 Seconds (11.1-14.7)
[2022-09-03 00:32] LABS: Alanine Aminotransferase 65 U/L (6-50); Albumin Level 4.9 g/dL (3.5-5.1); Alkaline Phosphatase 37 U/L (38-126); Anion Gap 10 mmol/L (8-16); Aspartate Amino Transferase 50 U/L (17-59); Bilirubin,Total 0.6 mg/dL (0.2-1.3); Blood Urea Nitrogen 29 mg/dL (9-20); Calcium 10.2 mg/dL (8.4-10.2); Carbon Dioxide 27 mmol/L (22-30); Chloride 103 mmol/L (98-107); Estimated CRCL calculation 66 ml/min; Estimated Glomerular Filt Rate > 60; Glucose 100 mg/dL (65-110); Lipase 308 U/L (23-300); Sodium 140 mmol/L (137-145)
[2022-09-03] MEDS: ASPIRIN 81 MG CHEWABLE TABLET 324 MG PO (00:37)
[2022-09-03 00:38] VITALS: BP 124/82; PULSE 52; RESP 12
[2022-09-03 00:44] LABS: Troponin I < 0.012 ng/mL (0.000-0.034)
[2022-09-03 00:48] VITALS: PULSE 50; RESP 18; O2SAT 97
[2022-09-03 01:00] VITALS: PULSE 48; RESP 17; O2SAT 98
[2022-09-03 01:01] VITALS: BP 118/80; PULSE 48; RESP 18; O2SAT 97
[2022-09-03 01:35] VITALS: PULSE 47; RESP 14; O2SAT 98
--- NOTE | 2022-09-03 01:39 | ED.GENADULT ---
HPI - General Adult General Chief complaint: Arrhythmia/Palpitations Stated complaint: heart problems Time Seen by Provider: 09/03/22 00:15 History of Present Illness HPI narrative: Is a 61-year-old male with a history of paroxysmal AFib and bradycardia presenting ED with palpitations. Patient says that he woke up he felt his chest was pounding. [place] like it was skipping some beats. Checked his heart rate and it was approximately 90. Patient then came to the emergency department to be evaluated. His symptoms resolved on their own after approximately 45 minutes. The patient was did not have chest pain, shortness of breath, syncope/ presyncope or any other symptoms. He is now resting comfortably. The patient sees Dr. Ramsay. Related Data Home Medications Medication Instructions Recorded Confirmed calcium carbonate 600 mg calcium 600 mg PO DAILY 05/17/20 08/24/22 (1,500 mg) tablet (Calcium) garlic 1,000 mg capsule 1,000 mg PO DAILY 05/17/20 08/24/22 melatonin 3 mg capsule 3 mg PO HS 05/17/20 08/24/22 cholecalciferol (vitamin D3) 25 5,000 unit PO DAILY 01/03/21 08/24/22 mcg (1,000 unit) capsule Allergies Allergy/AdvReac Type Severity Reaction Status Date / Time acetaminophen [From NyQuil] Allergy Unknown Unknown Verified 08/24/22 08:55 dextromethorphan Allergy Unknown unknown Verified 08/24/22 08:55 doxylamine Allergy Unknown unknown Verified 08/24/22 08:55 pseudoephedrine Allergy Unknown Unknown Verified 08/24/22 08:55 [facility] Past Medical History Medical History Atrial fibrillation Hemochromatosis Hyperlipidemia Iron overload Prediabetes Right arm pain Surgical History Surgical History History of colonoscopy History of shoulder surgery Family History Family History Father Acute alcohol abuse Mother Cancer Hypertension Heart and renal disease, hypertensive Heart disease Sibling Hypertension Grandparent Hypertension Heart disease Grandparent Asthma Social History Social History Social History: Patient stated he is only smoking 2 cigarettes per day, 08/13/2021 Smoking packs per day: 1 Smoking cigarettes per day: 20.0 Years smoked: 42 Smoking pack-years: 42.00 Smoking status: Former smoker Tobacco type: cigarettes Second hand tobacco smoke exposure: Yes Smoking end date: 08/11/21 Alcohol intake: former Substance use: former Substance use type: marijuana Spiritual care concerns: No Exam Narrative: APPEARANCE: No apparent distress. patient is pleasant polite Head: atraumatic. EYES: EOMI, NOSE: Atraumatic NECK: Trachea midline RESPIRATORY: No increased rate of breathing clear to auscultation CARDIOVASCULAR: RRR, no peripheral edema ABDOMINAL: Non-distended, no tenderness MUSCULOSKELETAl: No obvious deformities NEURO: Alert. Moving 4/4 extremities SKIN:: Warm, dry. Normal color PSYCHIATRIC: Normal affect Medical Decision Making MDM Narrative Medical decision making narrative: -Presentation: 61-year-old male presenting with palpitations that have since resolved. patient has been asymptomatic. He would like to follow-up on an outpatient basis with Dr. Ramsay. -DDX includes but is not limited to: AFib, anxiety, SVT, dysrhythmia -Co-morbidities complicating care: paroxysmal AFib, bradycardia -Social determinants of health: patient is unemployed due to COPD, lives alone -External Chart Review: review of cardiology clinic visit with Dr. Ramsay on August 24, 2022 for bradycardia and palpitations. -Hx from independent Sources: None -Discussion of Management/Consultants: none -Independent interpretation of studies: Lab work was ordered by nursing protocol. CBC BMP and troponin were negative. Chest x-ray negat
== END 2022-09-03 02:14 | disposition home or self-care (01) ==
PROVIDERS: Emergency Provider Emergency Medicine; PCP Physician Assistant
DX: R00.2 Palpitations (principal); I48.0 Paroxysmal atrial fibrillation; E78.5 Hyperlipidemia, unspecified; Z87.891 Personal history of nicotine dependence
CPT/HCPCS: 36415; 71046; 80053; 83690; 84484; 85025; 85610; 85730; 93005; 99284; A9270

== ENCOUNTER 2022-10-08 09:00 | Outpatient (RCR) | payer OTHER, SELFPAY ==
--- NOTE | 2022-09-09 09:56 | PTOPEVAL1 ---
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 worked since Mar 2021; difficulty cut grass and outside work---due to back pain, cardiac issues with a-fib, SOB; do not think therapy can do anything to help his neck discs---was told if he moved wrong, he could have a stroke; Reported Pain Level Pain Score Self Report Additional Pain Score Comments pain range in the past week 6-9/10; both sides of neck, feels like carlos hinge, can hear neck turning; increase pain with tilting head back or turning too fast to either side decrease pain with resting, sit in recliner, aspirin; have not used heat or ice -- instructed on PRN use Assessment PT Clinical Summary Jayson has the diagnosis of back and neck pain; he wanted to have treatment for his neck. He also reports R and L shoulder pain, back pain, R knee pain. He is not working due to pain and A- fib issues. Self assessment Neck Index of 56% limitation in activity level. With the evaluation; he has severely rounded shoulder posture with forward head; there are spasms and tenderness over cervical, anterior shoulders/pec, upper traps areas; decreased cervical rotation to R and L, with most pain increase with cervical extension; Both shoulders have limited ROM, with pain. Skilled PT services are indicated for modalities to decrease pain and spasms, therapeutic exercises to stretch and strengthen cervical-thoracic musculature with education for HEP and posture. Plan of Care Interventions Electrical Stimulation,Hot Pack/Cold Pack,Manual Therapy,Mechanical Traction,Neuro Re-education, Patient/Caregiver Education,Therapeutic Activities, Therapeutic Exercise,Ultrasound,Other Other Interventions
--- NOTE | 2022-09-09 09:56 | OPREHPOC ---
Outpatient Therapy Plan of Care This is a Multidisciplinary Plan of Care that may contain components documented by all disciplines (PT, OT, and ST.) PT Problem 1 PT Problem #1 Knowledge Deficit PT Goal 1 Goal 1* pt indep with HEP PT Problem 2 PT Problem #2 Pain PT Goal 1 Goal 1* pt report pain rating at the worst of 6/10 in neck 2* self assessment Neck Index rating of 42% limitation in activity PT Problem 3 PT Problem #3 Impaired Strength PT Goal 1 Goal 1* pt perform 20 reps of cervical-thoracic strengthening exercises in sitting position 2* with performing exercises, pt not have shoulder elevation/substitute motions PT Problem 4 PT Problem #4 Impaired Flexibility PT Goal 1 Goal 1* active cervical rotation to L 70' 2* pt report no issues with turning his head when driving
--- NOTE | 2022-10-08 11:59 | PTOPEVAL1 ---
Assessment and note entered by Lesli Yi PT Evaluation Information Assessment Status Evaluation Diagnosis neck and low back pain Onset few years ago Subjective Information Jayson reports neck is the same, no changes since coming for therapy; is taking aspirin for his heart, but not taking any meds for his neck; when drive have to turn his shoulders and whole body to look around; go back to the dr tomorrow; wants treatment for his back--has medical disability hearing in November and has to have treatment for both his neck and back, wants to get MRIs for both disappointed he cannot have both at once; continues to have the personnel monitor; NECK: pain range in the past week -12/27; cervical spine- pointed to as area of pain; neck hinging and sqeaky, can hear noises when move head ; pops in neck when getting up out of bed increase pain when lying down to sleep and lift head up off pillow decrease pain: sit and rest in recliner with head supported; use ice every once in awhile- but does not help; do not have a heating pad to use heat; still have pain in both shoulders and back; Neck Disability Index self assessment 44% limitation in activity level BACK: have had back pain since 1994; last few years has gotten worse; ortho dr has given him limited lifting of 35# pain range in the past week: -12/27; increase pain with lifting; walking to mail box; standing 15-20 min, with sleeping awaken 3-4 x/ night due to pain in neck and back decrease pain: lie flat and resting; problems with shopping--have to use grocery cart and stop to rest; Oswestry self assessment 60% limitation in activity level. Jayson reports he wants to see his provider and does not want to schedule any therapy at this time Dr wants him to have the MRIs as soon as able, due to disability hearing. Reported Pain Level Pain Score Self Report Additional Pain Score Comments NECK: pain range in the past week -12/27;
--- NOTE | 2022-12-02 11:01 | PTOPDC ---
Assessment and note entered by Lesli Yi, PT Evaluation Information Assessment PT Clinical Summary DISCHARGE PT Jayson has received a total of 5 PT sessions, from September 09 to October 08. He then stopped attending therapy. He will be discharged at this time. Refer to the last report dated October 08 for his status at the last session. Plan of Care PT Services Indicated No
== END 2022-12-02 15:32 | disposition home or self-care (01) ==
LOC: ANHPT 09:00
PROVIDERS: PCP Physician Assistant; Visit Provider Physician Assistant
DX: M54.50 Low back pain, unspecified (principal)
CPT/HCPCS: 97110; 97140; 97161

== ENCOUNTER 2022-10-19 16:35 | Outpatient (CLI) | payer OTHER, SELFPAY ==
--- NOTE | ~2022-10-19 | MR_ITS ---
MRI of the cervical spine Clinical History: Radiculopathy Technique: Axial T2-weighted and gradient images, and sagittal T1-weighted, T2-weighted, and STIR gwendolyn ges were acquired. Findings: There is no fracture or subluxation of the cervical spine. Vertebral bodies maintain normal height and alignment. No bone marrow signal abnormality seen. At C2-C3, there is no disc bulge or herniation. No spinal canal stenosis, cord compression, or neural foraminal narrowing. At C3-C4, there is mild degenerative disc narrowing. No disc bulge or herniation. No spinal canal art nosis or cord compression. There is mild left neural foraminal narrowing with probable mild left face t arthropathy. Right neural foramen preserved. At C4-C5, there is disc osteophyte complex and left facet arthropathy, left neural foraminal narrowin g. Right neural foramen preserved. No central canal stenosis or cord compression. At C5-C6, there is disc osteophyte complex with mild canal stenosis but no katelin cord compression. Th ere is bilateral neural foraminal narrowing. At C6-C7, there is no disc bulge or herniation. No spinal canal stenosis, cord compression, or neural foraminal narrowing. No abnormal signal seen in the spinal cord. Paravertebral soft tissues are unremarkable. Impression: Mild degenerative spondylosis, as detailed above, worst at C4-C5 and C5-C6. Reviewed, dictated and finalized at [facility]. Impression: Mild degenerative spondylosis, as detailed above, worst at C4-C5 and C5-C6.
== END 2022-10-19 16:36 | disposition home or self-care (01) ==
PROVIDERS: PCP Physician Assistant; Visit Provider Physician Assistant
DX: M47.22 Other spondylosis with radiculopathy, cervical region (principal)
CPT/HCPCS: 72141

== ENCOUNTER 2022-11-24 13:10 | Outpatient (CLI) | payer OTHER, SELFPAY | END 2022-11-24 13:11 | disposition home or self-care (01) | LOC: ANHAUDIO 13:11 | PROVIDERS: PCP Physician Assistant; Visit Provider Physician Assistant | DX: H90.3 Sensorineural hearing loss, bilateral (principal) | CPT/HCPCS: 92557; 92567 ==

== ENCOUNTER 2023-01-11 22:36 | Emergency (ER) | payer OTHER, SELFPAY ==
[2023-01-11 22:40] VITALS: BP 148/98; PULSE 60; RESP 17; TEMP 36.6; O2SAT 98
--- NOTE | 2023-01-11 22:40 | ECG_ITS ---
Measurements Intervals [place] Rate: 60 P: 30 [place]: 167 QRS: 9 QRSD: 94 T: 56 QT: 388 QTc: 388 Interpretive Statements SINUS RHYTHM BASELINE ARTIFACT- I, II, III, AVR, AVL, AVF NORMAL ECG COMPARED TO ECG 09/02/2022 23:37:03 SINUS RHYTHM NOW PRESENT Electronically Signed On 01-12-2023 6:28:50 CDT by Jarod Ramsay D.O.
--- NOTE | 2023-01-12 00:10 | PC.NURSE ---
Patient walked up to triage desk and stated that he was going to leave.
== END 2023-01-11 22:43 | disposition left against medical advice (07) ==
PROVIDERS: Emergency Provider Emergency Medicine; PCP Physician Assistant
DX: R00.2 Palpitations (principal)
CPT/HCPCS: 93005; 99199

== ENCOUNTER 2023-05-29 08:10 | Outpatient (CLI) | payer OTHER, SELFPAY ==
--- NOTE | ~2023-05-29 | CT_ITS ---
CT Scan of the Chest without Contrast: Clinical Indication: Lung cancer screening, personal history of nicotine dependence Technique: Contiguous sections were acquired throughout the chest without intravenous contrast. Dose reduction technique was used on this scan by utilizing automated exposure control and iterative recon struction technique. The dose-length product (DLP) was 182.21 mGy-cm. COMPARISON: 05/24/2022 Findings: There is no evidence of any significant mediastinal, hilar or axillary lymphadenopathy. The mediastin al soft tissues appear normal. There is no evidence of pleural or pericardial effusion. 3 mm right upper lobe pulmonary nodule present. Images through the upper abdomen reveal diffuse fatty infiltration of liver. Impression: Lung RADS 2: Benign appearance. 12 month follow-up screening CT advised. Reviewed, dictated and finalized at location . OR GL ACCOUNTANT Impression: Lung RADS 2: Benign appearance. 12 month follow-up screening CT advised.
== END 2023-05-29 08:11 | disposition home or self-care (01) ==
LOC: ANHIMG 08:11
PROVIDERS: PCP Physician Assistant; Visit Provider Physician Assistant
DX: Z12.2 Encounter for screening for malignant neoplasm of respiratory organs (principal); Z87.891 Personal history of nicotine dependence
CPT/HCPCS: 71271

== ENCOUNTER 2023-11-23 19:19 | Emergency (ER) | payer OTHER, SELFPAY ==
--- NOTE | 2023-11-23 19:21 | PC.NURSE ---
patient left prior to being triaged when he found out he would not be taken immediately to a room
== END 2023-11-23 19:37 | disposition left against medical advice (07) ==
PROVIDERS: PCP Physician Assistant
DX: Z53.21 Procedure and treatment not carried out due to patient leaving prior to being seen by health care provider (principal)
CPT/HCPCS: 99199

== ENCOUNTER → 2024-12-07 11:32 | Outpatient (CLI) | payer OTHER, SELFPAY ==
--- NOTE | ~2024-12-07 | XR_ITS ---
[id number] 12/07/2024 11:50 Indication: Neck pain Procedure: 5 views cervical spine Comparison: 05/15/2021 Findings: There has been progression of loss of disc height at C5-6. There is multilevel facet hypertrophy. There is moderate uncinate hypertrophy at C5-6. Odontoid process is normal. Lateral masses normally aligned. No prevertebral soft tissue swelling. Impression: 1: Severe cervical spondylosis. Reviewed, dictated and finalized at location [facility]. Impression: 1: Severe cervical spondylosis.
== END ==
PROVIDERS: PCP Physician Assistant; Visit Provider Physician Assistant
DX: M47.812 Spondylosis without myelopathy or radiculopathy, cervical region (principal)
CPT/HCPCS: 72040